=== PATIENT | male | born 1960 | race Caucasian/White ===

== ENCOUNTER → 2023-11-29 06:28 | Day surgery (SDC) | payer OTHER, SELFPAY | LOC: GI 06:28 | PROVIDERS: ATTENDING PHYSICIAN Surgery | DX: Z12.11 Encounter for screening for malignant neoplasm of colon (principal); D12.0 Benign neoplasm of cecum; D12.5 Benign neoplasm of sigmoid colon; K57.30 Diverticulosis of large intestine without perforation or abscess without bleeding; Z86.010 Personal history of colon polyps | CPT/HCPCS: 45380; 88305 ==

== ENCOUNTER 2023-11-30 17:00 | Emergency (ER) | payer OTHER, SELFPAY ==
[2023-11-30 17:03] VITALS: BP 160/121
[2023-11-30 17:38] VITALS: BMI 28.8
[2023-11-30 17:52] VITALS: BP 148/98
[2023-11-30 17:59] LABS: % Basophils 0.5 % (0-2); % Eosinophils 2.5 % (0-6); % Immature Granulocytes 0.4 % (0-0.5); % Monocytes 9.8 % (1.7-9.3); % Neutrophils 68.8 % (42.2-75.2); Absolute Eosinophils 0.2 10^3/uL (0-0.7); Absolute Lymphocytes 1.4 10^3/uL (1.2-3.4); Absolute Monocytes 0.8 10^3/uL (0.1-0.6); Absolute Neutrophils 5.3 10^3/uL (1.4-6.5); Hematocrit 39.2 % (39.0-52.0); Hemoglobin 14.1 g/dL (13.0-18.0); Mean Corpuscular Hgb 29.1 pg (27.0-31.0); Mean Corpuscular Volume 80.8 fL (80.0-94.0); Mean Platelet Volume 8.9 fL (7.4-10.4); Nucleated Red Blood Cells % 0 % (-); Platelet Count 273 10^3/uL (130-400); Red Blood Cell Count 4.85 10^6/uL (4.70-6.10); Red Cell Dist. Width 12.8 % (11.5-14.5); White Blood Cell Count 7.7 10^3/uL (4.8-10.8)
[2023-11-30 18:13] LABS: ALT (SGPT) 85 U/L (0-50); AST (SGOT) 47 U/L (17-59); Albumin 4.5 g/dl (3.5-5.0); Alkaline Phosphatase 136 U/L (38-126); Blood Urea Nitrogen 17 mg/dl (9-20); Calcium 10.2 mg/dl (8.4-10.2); Carbon Dioxide 25 mmol/L (22-30); Chloride 103 mmol/L (98-107); Estimated Creatinine Clearance 90 ml/min; Glucose 107 mg/dl (70-99); Potassium 4.3 mmol/L (3.5-5.1); Sodium 140 mmol/L (135-145); Total Bilirubin 0.6 mg/dl (0.2-1.3); Total Protein 7.5 g/dl (6.3-8.2); eGFR > 60.00
[2023-11-30 18:38] LABS: Urine Albumin Negative (Neg - Trace); Urine Bilirubin Negative (Negative); Urine Character Clear (Clear); Urine Color Yellow; Urine Glucose Negative (Negative); Urine Ketone Negative (Negative); Urine Leukocyte Negative (Negative); Urine Nitrite Negative (Negative); Urine Occult Blood 2+ (Negative); Urine Specific Gravity 1.015 (<1.030); Urine Urobilinogen Negative (Neg - 1+)
[2023-11-30 19:02] LABS: Urine Red Blood Cell 0-2 /HPF (0-2)
[2023-11-30] MEDS: TORADOL 15 MG IV (19:07)
[2023-11-30] MEDS: ZOFRAN 4 MG IV (19:08)
[2023-11-30] MEDS: NSS 1000 IV (19:08)
[2023-11-30 19:57] LABS: Lipase 135 U/L (23-300)
[2023-11-30] MEDS: MORPHINE SULFATE 4 MG IV (20:37)
[2023-11-30 21:01] LABS: Creatine Phosphokinase 123 U/L (55-170)
--- NOTE | 2023-11-30 23:35 | ED.GENMED ---
History of Present Illness
General
Chief Complaint: Back Pain
Source: patient and spouse
Exam Limitations: none
Time Seen by Provider: 11/30/23 17:56
Nursing documentation reviewed up to this point in time: agreed with
History of Present Illness
History of Present Illness:
63-year-old male with a past medical history of hypertension, asthma, BPH who presents to the emergency room with his for evaluation of pain in the right back/flank as well as nausea and dry heaving. Patient has been dealing with chronic
nausea and dry heaving for weeks to months although he does feel that it is a bit worse over the past day or 2. His says that he seems to have a lot of belching and she thinks it might be from reflux. He has taken occasional omeprazole but
this does not seem to help. Over the past few days he says he is also had pain in the right flank/mid back. He says he thought it could be from a pinched nerve but he denies any shooting pains, denies any trauma or injury. He is pain is not worse
with movement. He says he has been having consistent sharp pain in the area. No clear triggering or relieving factors. Aside from the symptoms he denies any change in his bowel movements�no constipation or diarrhea (exception being that he did
have a colonoscopy yesterday and had to do the prep; symptoms all preceded colonoscopy). He denies any urinary symptoms. He denies any fevers or chills. He denies any chest pain or shortness of breath, cough. He denies any other complaints.
Past History
Past History
ED Past Medical History: Asthma (Exercise-induced), HTN and Psychiatric (depression); Negative CAD, Hypercholesterolemia, IDDM or NIDDM
ED Past Surgical History: Other (wisdom teeth extraction)
Social History
Tobacco: Non-smoker
Alcohol: Occasional
Drug: None
Personal:
Living: with family
Employment: Employed
Family History
Family History: Hypertension; Negative Early CAD or CAD
Review of Systems
Review of Systems
All Other Systems: ROS reviewed and negative except as documented in HPI and ROS
Constitutional: Denies fever or chills
Respiratory: Denies cough or trouble breathing
Cardiac: Denies chest pain
ABD/GI: Reports nausea; Denies abdominal pain, vomiting, diarrhea or constipated
: Reports flank pain; Denies dysuria or frequency
Musculoskeletal: Reports back pain; Denies neck pain
Neurological: Denies dizzy, headache, weakness or numbness
Phy Exam
Physical Exam
Physical Exam:
General: Awake, alert, oriented x3; no acute distress
Head: Normocephalic, atraumatic
Eyes: Conjunctiva normal, EOMI, sclera anicteric
Throat: Airway intact, handling secretions
Neck: Trachea midline, supple without meningismus
Lungs: Clear to auscultation bilaterally, no wheezing, rales, rhonchi
Heart: Regular rate and rhythm, no murmurs, gallops, or rubs
Abd: Soft, non distended, nontender
Back: No reproducible tenderness in the thoracic or lumbar spine or in the paraspinal region; no CVA tenderness
Neuro: Cranial nerves grossly intact, speech fluid
Skin: no rash
Extremities: No edema in extremities, equal pulses in all extremities
Scores
Heart Failure Risk
Heart Failure Risk Score: Not Applicable
Heart Score for Chest Pain Patients
STEMI patient?: Not applicable
Withdrawal Assessment of Alcohol
Withdrawal Assessment Completed?: Not applicable
Course
Orders/Labs/Results
Orders:
Orders
11/30/23 17:49
Complete Blood Count/With Diff Urgent
Comprehensive Metabolic Panel Urgent
Creatine Phosphokinase Urgent
Comment: ADDON
Lipase Urgent
Comment: ADD ON
Urinalysis Reflex To Culture Urgent
Date Specimen was Collected: 11/30/23
Time Specimen was Collected: 17:43
Urine Microscopic Reflex Cult Urgent
11/30/23 18:50
CT Abd/pel Without Iv Or Oral Urgent
Comment:
Reason For Exam: right flank pain
11/30/23 18:51
0.9% Sodium Chloride 1000 ml [Nss] 1,000 ml IV BOLUS
Ketorolac [Toradol] 15 mg IV NOW STA
Ondansetron Injectable [Zofran] 4 mg IV NOW STA
11/30/23 19:21
Add On- LAB Urgent
Tests Added?: lipase
11/30/23 20:27
US Abdomen Complete/Upper Urgent
Comment:
Reason For Exam: right flank pain, nausea
11/30/23 20:28
Add On- LAB Urgent
Tests Added?: CPK
Morphine Sulfate 4 mg IV NOW STA
11/30/23 23:34
Oxycodone [Roxicodone] 5 mg PO NOW STA
Abnormal Lab Results
11/30/23
17:49
Absolute Monos (auto) 0.8 H 10^3/uL
(0.1-0.6)
Lymphocytes % 18.0 L %
(20.5-51.1)
Monocytes % 9.8 H %
(1.7-9.3)
Glucose 107 H mg/dl
(70-99)
ALT 85 H U/L
(0-50)
Alkaline Phosphatase 136 H U/L
(38-126)
Ur Occult Blood Reflex 2+ A
(Negative)
11/30/23 17:49
11/30/23 17:49
Vital Signs
Initial and Last Documented VS:
Initial Vital Signs
Temp Pulse Resp BP Pulse Ox
36.9 C 97 19 160/121 100
11/30/23 17:03 11/30/23 17:03 11/30/23 17:03 11/30/23 17:03 11/30/23 17:03
Last Documented Vital Signs
Temp Pulse Resp BP Pulse Ox
36.9 C 88 16 138/108 97
11/30/23 17:03 11/30/23 23:51 11/30/23 23:51 11/30/23 23:51 11/30/23 23:51
MDM/Problems Addressed
Differential Diagnosis Includes:
Nausea: GERD, gastritis, ulcer, gallstones, pancreatitis, kidney stone
Flank/back pain: Kidney stone, gallstones, cholecystitis, pancreatitis, ulcer, musculoskeletal pain, pinched nerve considered less likely
MDM/Problems Addressed:
63-year-old male presents for evaluation of chronic nausea worse over the past few days in association with new right mid back/flank pain. Hypertensive but otherwise normal vitals. Physical exam as above. Check labs including a CBC and CMP,
urinalysis. Check lipase. Will check CT abdomen pelvis. Will treat pain and nausea. Reassess after the above.
Nausea improved with Zofran but Toradol did not improve pain. Will treat with morphine. Initial labs reviewed: CBC unremarkable, CMP shows marginal elevation of ALT but normal T. bili, normal AST, normal lipase. Urinalysis positive for blood but
negative for infection. Awaiting CT.
CT abdomen pelvis negative for any acute pathology. Will check upper abdominal ultrasound to rule out cholelithiasis or cholecystitis.
Right upper quadrant ultrasound shows fatty liver (likely accounts for marginal LFT abnormality) but no gallstones or emergent pathology. Patient symptoms have improved greatly with treatment here. Low suspicion for emergent pathology at this
point. Leading diagnosis would be GERD possibly with peptic or duodenal ulcer. He has taken occasional omeprazole; will start instead on daily pantoprazole 40 mg and Carafate. Patient actually has an appointment with his primary doctor tomorrow
and I urged him to keep this and to discuss potentially GI follow-up (his colonoscopy was done by colorectal surgeon referred by primary). He feels comfortable with this plan. He is requesting pain medication to take should his significant pain
return�prescribed low-dose of breakthrough pain medication if needed. Spoke about return precautions and all questions answered.
Acute Exacerbation and/or Progression of Chronic Illness:
Acutely hypertensive no signs or symptoms of hypertensive emergency no indication for emergent antihypertensive treatment
Acute Exacerbation and/or Progression of Chronic Illness: HTN
*Radiology
Radiology exam reviewed: preliminary read by ED provider and radiology read reviewed
*Pulse Oximetry
Patient hypoxic: no
*Critical Care Note
Total Time (30-74mins, 75-104mins- exclusive of procedures): Not Applicable
Data Reviewed
Source: patient and records
ED Attending Note
-
Portions of this chart may have been created with voice recognition software.� Occasional wrong word or��sound alike� substitutions may have occurred due to the inherent limitations of voice recognition software.
Discharge Plan
Departure
Patient Disposition: Home (Routine Discharge)
Date of Disposition: 11/30/23
Time of Disposition: 23:45
Patient with high blood pressure during this ER visit?: Yes
Discharge Problem:
Back pain, Nausea
Instructions: Nausea and Vomiting, Adult ED, Back Pain
Prescriptions:
New
oxycodone 5 mg tablet
5 mg PO TID PRN (Reason: Pain) Qty: 10 0RF
pantoprazole 40 mg tablet,delayed release (DR/EC)
40 mg PO DAILY Qty: 30 0RF
sucralfate [Carafate] 100 mg/mL suspension
10 ml PO ACHS Qty: 1000 0RF
No Action
Concerta Tab
72 mg PO DAILY
fluoxetine 20 MG capsule
60 mg PO DAILY
amlodipine 5 MG tablet
5 mg PO DAILY Qty: 30 0RF
alprazolam 1 MG tablet
1 mg PO DAILY
Deplin
1 tab PO DAILY
Patient Comments:
pt thinks dose is '50mg'
Vitamin B2
1 tab PO DAILY
Vitamin D
1 tab PO DAILY
cephalexin 500 mg capsule
500 mg PO BID 7 Days Qty: 14 0RF
Referrals:
Murali Malin Jr., DO [Family Provider] - Tomorrow
Activity Restrictions/Additional Instructions:
Thank you for visiting the Emergency Department at [facility].
1. Please schedule a follow up appointment as directed. Call first thing tomorrow morning to make an appointment.
2. If indicated, please take your medications as instructed and indicated on discharge paperwork.
3. If any of your symptoms do not improve, or persist, or become more severe within 6-12 hours, please return to the emergency department for further care.
4. Please return to the emergency department if you develop a headache, neck pain/stiffness, fever greater than 100.4F, chest pain, shortness of breath, persistent nausea, vomiting, slurred speech, difficulty walking, numbness/tingling, weakness,
signs of infection or any other symptoms that are worrisome to you.
Please call [phone] if you have any questions.
Interventions
Interventions:
*Risk Screen - Suicide Last Done: 11/30/23 17:39
*General Assessment Last Done: 11/30/23 17:04
*Neglect/Abuse Screening Last Done: 11/30/23 17:39
ED- Fall Risk Assessment Last Done: 11/30/23 23:55
*ED COVID-19 Vaccine History Last Done: 11/30/23 17:04
*Nursing Disposition Last Done: 11/30/23 23:55
ED-Musculoskeletal Assessment Last Done: 11/30/23 17:39
Discharge Date and Time
Discharge Date/Time: 11/30/23 23:55
Print Language: KISWAHILI
[2023-11-30] MEDS: ROXICODONE 5 MG PO (23:50)
[2023-11-30 23:51] VITALS: BP 138/108
== END 2023-11-30 23:55 | disposition home or self-care (01) ==
LOC: EMR 17:00
PROVIDERS: EMERGENCY PHYSICIAN Emergency Medicine; FAMILY PHYSICIAN Family Medicine
DX: M54.9 Dorsalgia, unspecified (principal); R11.0 Nausea; I10 Essential (primary) hypertension; N40.0 Benign prostatic hyperplasia without lower urinary tract symptoms; J45.909 Unspecified asthma, uncomplicated
CPT/HCPCS: 99285; 96374; 96375 ×2; 96361; 74176; 76700; 80053; 81003; 81015; 82550; 83690; 85025

== ENCOUNTER 2023-12-03 23:49 | Emergency (ER) | payer OTHER, SELFPAY ==
[2023-12-03 23:51] VITALS: BP 164/106
[2023-12-04 00:07] VITALS: BMI 29.1
--- NOTE | 2023-12-04 00:14 | EDRN ---
Pt having back pain which he has been told is related to his stomach. Pt was in this ED 3 days ago for same complaint he is here for tonight. Pt says every time he eats he gets nauseous, no vomiting. Pt thinks he is dehydrated because if he
drinks water he feels sick however he keeps the water down. Pt noticed digestion problems few months ago. Pt had colonoscopy on Mon then Mon night 'everything sorta collapsed' adds pt developed pain middle of his back 1 week ago which has
kept pt up at night because he cannot get comfortable. pain in his back became worse and he was unable to lie down so he came to ED for evaluation. Pt given 3 Rxs - protonix, carafate and oxycodone. Pt saw family doctor Monday morning
and reportedly felt it was referal pain from GI issue. Pt given Rx for muscle relaxer and another Rx for oxycodone however says 'we didn't put the first one in' (one from ED) Pt says he has not had a BM since colonoscopy on Mon however he has
not been eating much. Pt complains of bloating and belching. Pt feels lightheaded. No cp, sob, diarrhea, fever/chills/cough, urinary symptoms.
--- NOTE | 2023-12-04 00:25 | ED.GENMED ---
History of Present Illness
General
Chief Complaint: Abdominal Symptoms
Source: patient
Exam Limitations: none
Time Seen by Provider: 12/04/23 00:12
History of Present Illness
History of Present Illness:
This is a 63 year old male that comes in with c/o back and abd pain. States that he was here on with the same complaints. States at this time he feels that he is dehydrated. States that he has abd pain after eating and he gets nauseated but
has not vomiting. States that his appetite has decreased. State that he can drink water and he has had some dry heaves. States that he has had problems with digestion for the past month. States that he had a colonoscopy on Monday and then that
night his upper abd pain started. States that a week ago he also started with mid back pain and this pain also got worse that he couldn't sleep or lay down. States that he has not had a BM since Monday and he is belching a lot. Patient did see
his PCP on Monday morning and states that they felt this was still GI related. States that he has been started on Carafate, Protonix and given Oxycodone. States that t his is not helping and his took a morphine pill tonight that his had
and this helped. States that he also feels lightheaded. Denies any fever, chills, chest pain, SOB, diarrhea, headache, urinary burning.
Past History
Past History
ED Past Medical History: Asthma (Exercise-induced), GERD, HTN, Psychiatric (depression, Anxiety, Bipolar ) and Other (Tremors, Pleurisy, Diverticulitis, Tourette's, ); Negative CAD, Hypercholesterolemia, IDDM or NIDDM
ED Past Surgical History: Other (wisdom teeth extraction, Surgery for sleep apnea, Uvula removed, cataracts)
Social History
Tobacco: Non-smoker
Alcohol: Occasional
Drug: None
Personal:
Living: with family
Employment: Employed
Family History
Family History: Hypertension; Negative Early CAD or CAD
Review of Systems
Review of Systems
All Other Systems: ROS reviewed and negative except as documented in HPI and ROS
Constitutional: Reports no symptoms; Denies fever or chills
EENT: Reports no symptoms
Respiratory: Reports no symptoms; Denies cough or trouble breathing
Cardiac: Denies chest pain
ABD/GI: Reports abdominal pain, nausea and other (Dry heaves); Denies vomiting or diarrhea
: Reports no symptoms; Denies dysuria, frequency or urgency
Musculoskeletal: Reports back pain (Mid back pain)
Skin: Reports no symptoms
Neurological: Reports other (Lightheaded); Denies dizzy or headache
Psychiatric: Reports no symptoms
Phy Exam
General Physical Exam
General Presentation: mild distress
General age: appears stated age
General Skin: warm and dry
General Habitus: elderly
General Mental: alert
General Hydration: appears well hydrated
ENT Exam
ENT Exam: TM's normal, pharynx normal and neck supple
Eye Exam
Eye Exam: EOMI
Cardiovascular Exam
Cardiovascular Exam: regular rate/rhythm, no edema, no murmur and normal peripheral pulses
Pulmonary Exam
Pulmonary Exam: lungs clear, no respiratory distress, no rales, chest non tender, no crackles, no rhonchi, no wheezing and no cough
Gastrointestinal Exam
Gastrointestinal Exam: normal bowel sounds, soft, no organomegaly, no pulsatile mass, non distended and tender (Very slight Upper abd tenderness with palpation)
Musculoskeletal Exam
Musculoskeletal Exam: full ROM and no edema
Skin Exam
Skin Exam: normal color, warm/dry, no rash and no petechia
Psychiatric Exam
Psychiatric Exam: normal mood/affect
Course
Orders/Labs/Results
Orders:
Orders
12/04/23 00:24
0.9% Sodium Chloride 1000 ml [Nss] 1,000 ml IV BOLUS
Ketorolac [Toradol] 30 mg IV NOW STA
07/08/24 00:29
Electrocardiogram (*1) Urgent
Reason for Study: Abdominal Pain
EKG- Treatment ONCE
Complete Blood Count/With Diff Urgent
12/04/23 00:54
Comprehensive Metabolic Panel Urgent
Lipase Urgent
Troponin I Urgent
Abnormal Lab Results
12/04/23 12/04/23
00:29 00:54
Hct 38.8 L %
(39.0-52.0)
Absolute Monos (auto) 0.8 H 10^3/uL
(0.1-0.6)
Monocytes % 10.5 H %
(1.7-9.3)
Carbon Dioxide 21 L mmol/L
(22-30)
BUN 23 H mg/dl
(9-20)
Glucose 104 H mg/dl
(70-99)
ALT 57 H U/L
(0-50)
12/04/23 00:29
12/04/23 00:54
Dehydration. ALT mildly elevated. Troponin <0.012, lipase normal at 97
Vital Signs
Initial and Last Documented VS:
Initial Vital Signs
Temp Pulse Resp BP Pulse Ox
97.4 F 70 26 164/106 98
12/03/23 23:51 12/03/23 23:51 12/03/23 23:51 12/03/23 23:51 12/03/23 23:51
Last Documented Vital Signs
Temp Pulse Resp BP Pulse Ox
97.4 F 62 26 150/99 96
12/03/23 23:51 12/04/23 01:00 12/03/23 23:51 12/04/23 01:00 12/04/23 01:00
MDM/Problems Addressed
Differential Diagnosis Includes:
Ulcer, Gastritis,
MDM/Problems Addressed:
This is a 63 year old male that comes in with c/o back pain and upper abd pain. Patient as seen here on Thursday with the same complaints and had a CT and US done. States that he saw his PCP on Monday and patient has been given oxycodone, Protonix
and Carafate. Patient was also given a Muscle relaxer. States that he had a Colonoscopy on Monday and he has not had a BM since then but is not eating much.
Will check labs and medicate for pain.
Back into see patient. Patient was sleeping. Arouses easily. States that he is feeling better. Explained that his blood work show every slight Dehydration. Explained that this may all be Gastritis with reflux. Patient to continue with his Carafate
and Protonix as directed. Follow up with the family doctor. Return with any concerns.
Chronic conditions affecting care:
GERD
Chronic conditions affecting care: Psychiatric illness (Anxiety)
Acute Exacerbation and/or Progression of Chronic Illness:
GERD
Acute Exacerbation and/or Progression of Chronic Illness: Psychiatric illness (Anxiety)
*Pulse Oximetry
Patient hypoxic: no
*EKG
Interpreted by ED Provider?: Yes
Heart Rate: 65
Rate: normal
Rhythm: sinus
Kimper: left axis deviation
Interval: normal interval
QRS Pattern: normal QRS
Ischemia: no ischemia
*Car Rental Clerk Interpretation
Rate: Car Rental Clerk- N/A
*Critical Care Note
Total Time (30-74mins, 75-104mins- exclusive of procedures): Not Applicable
ED Attending Note
-
Portions of this chart may have been created with voice recognition software.� Occasional wrong word or��sound alike� substitutions may have occurred due to the inherent limitations of voice recognition software.
Discharge Plan
Departure
Patient Disposition: Home (Routine Discharge)
Date of Disposition: 12/04/23
Time of Disposition: 01:40
Patient with high blood pressure during this ER visit?: Yes
Condition: Good
Covid-19: Not Applicable
Discharge Problem:
Gastritis
Instructions: Gastritis (DC), BLOOD PRESSURE
Prescriptions:
No Action
fluoxetine 20 MG capsule
60 mg PO DAILY
amlodipine 5 MG tablet
5 mg PO DAILY Qty: 30 0RF
alprazolam 1 MG tablet
1 mg PO DAILY
Vitamin B2
1 tab PO DAILY
Patient Comments:
pt does not know dose
Vitamin D
1 tab PO DAILY
oxycodone 5 mg tablet
5 mg PO TID PRN (Reason: Pain) Qty: 10 0RF
pantoprazole 40 mg tablet,delayed release (DR/EC)
40 mg PO DAILY Qty: 30 0RF
sucralfate [Carafate] 100 mg/mL suspension
10 ml PO ACHS Qty: 1000 0RF
'Statin'
1 tab PO DAILY
Patient Comments:
pt does not know name or dose
propranolol [Inderal LA] 80 mg Capsule,Extended Release 24 Hr
80 mg PO DAILY
lisinopril 5 mg Tablet
5 mg PO DAILY
zaleplon [Sonata] 5 mg Capsule
5 mg PO HS
albuterol sulfate [ProAir HFA] 90 mcg/actuation Hfa Aerosol Inhaler
1 - 2 inh INHALATION PRN PRN (Reason: asthma)
bupropion HCl [Wellbutrin XL] 300 mg Tablet Extended Release 24 Hr
300 mg PO DAILY
Symbicort
2 puff inhalation DAILY
Patient Comments:
pt does not know dose
Referrals:
Murali Malin Jr., DO [Family Provider] - Follow up in 2-3 days
Activity Restrictions/Additional Instructions:
As discussed, your blood work shows very slight Dehydration. Your ALT is very slightly elevated. You have been given IV fluids here and pain medication. Please follow up with the family doctor for recheck. Please continue with your Protonix and your
Carafate as directed. IF YOU HAVE ANY OTHER CONCERNS PLEASE RETURN TO THE EMERGENCY ROOM.
Interventions
Interventions:
*Risk Screen - Suicide Last Done: 12/03/23 23:51
*General Assessment Last Done: 12/04/23 00:07
*Neglect/Abuse Screening Last Done: 12/03/23 23:51
ED- Fall Risk Assessment Last Done: 12/04/23 00:48
*ED COVID-19 Vaccine History Last Done: 12/04/23 00:00
PR-Qryxyr-Xcdjrqdupp Assessment Last Done: 12/04/23 00:24
ED- Neurological Assessment Last Done: 12/04/23 00:24
ED- Pulmonary Assessment Last Done: 12/04/23 00:24
Discharge Date and Time
Print Language: URDU
[2023-12-04] MEDS: TORADOL 30 MG IV (00:40)
[2023-12-04] MEDS: NSS 1000 IV (00:40)
[2023-12-04 00:46] LABS: % Basophils 0.9 % (0-2); % Eosinophils 4.2 % (0-6); % Immature Granulocytes 0.5 % (0-0.5); % Lymphocytes 21.5 % (20.5-51.1); % Monocytes 10.5 % (1.7-9.3); % Neutrophils 62.4 % (42.2-75.2); Absolute Basophils 0.1 10^3/uL (0-0.2); Absolute Eosinophils 0.3 10^3/uL (0-0.7); Absolute Lymphocytes 1.6 10^3/uL (1.2-3.4); Absolute Monocytes 0.8 10^3/uL (0.1-0.6); Absolute Neutrophils 4.6 10^3/uL (1.4-6.5); Hematocrit 38.8 % (39.0-52.0); Mean Corp Hgb Conc. 36.1 g/dL (33.0-37.0); Mean Corpuscular Volume 80.3 fL (80.0-94.0); Mean Platelet Volume 10.1 fL (7.4-10.4); Nucleated Red Blood Cells % 0 % (-); Platelet Count 248 10^3/uL (130-400); Red Blood Cell Count 4.83 10^6/uL (4.70-6.10); Red Cell Dist. Width 12.9 % (11.5-14.5); White Blood Cell Count 7.4 10^3/uL (4.8-10.8)
[2023-12-04 01:00] VITALS: BP 150/99
[2023-12-04 01:13] LABS: ALT (SGPT) 57 U/L (0-50); AST (SGOT) 34 U/L (17-59); Albumin 4.1 g/dl (3.5-5.0); Alkaline Phosphatase 106 U/L (38-126); Blood Urea Nitrogen 23 mg/dl (9-20); Calcium 9.6 mg/dl (8.4-10.2); Carbon Dioxide 21 mmol/L (22-30); Chloride 106 mmol/L (98-107); Estimated Creatinine Clearance 80 ml/min; Glucose 104 mg/dl (70-99); Potassium 4.3 mmol/L (3.5-5.1); Sodium 138 mmol/L (135-145); Total Bilirubin 0.6 mg/dl (0.2-1.3); Total Protein 6.9 g/dl (6.3-8.2); eGFR > 60.00
[2023-12-04 01:18] LABS: Lipase 97 U/L (23-300)
[2023-12-04 01:24] LABS: Troponin I < 0.012 ng/ml
== END 2023-12-04 01:57 | disposition home or self-care (01) ==
LOC: EMR 23:49
PROVIDERS: Clinical Nurse Specialist Family Health; EMERGENCY PHYSICIAN Emergency Medicine; FAMILY PHYSICIAN Family Medicine
DX: K29.70 Gastritis, unspecified, without bleeding (principal); I10 Essential (primary) hypertension; F41.9 Anxiety disorder, unspecified
CPT/HCPCS: 99284; 96374; 96361; 80053; 83690; 84484; 85025; 93005

== ENCOUNTER 2023-12-05 06:47 | Emergency (ER) | payer OTHER, SELFPAY ==
[2023-12-05 06:50] VITALS: BP 185/105
[2023-12-05 07:37] VITALS: BMI 28.9
[2023-12-05 07:43] VITALS: BP 182/105
[2023-12-05 08:00] VITALS: BP 178/98
--- NOTE | 2023-12-05 08:02 | ED.GENMED ---
History of Present Illness
General
Chief Complaint: Abdominal Pain
Time Seen by Provider: 12/05/23 08:01
History of Present Illness
History of Present Illness:
HPI: Patient presents with abdominal pain primarily in the epigastric started approximately 10 days ago. During this time he is intermittently had some discomfort that radiates towards the chest. Is been seen in our ED twice and also saw PMD
twice. He was briefly on narcotic analgesia without improvement. He continues to take PPI. He has been having intermittent dry heaves. He had a colonoscopy 7 days ago and states that he did have 2 polyps removed.
EXAM:
GENERAL: Well appearing in no distress
HEENT: Moist oral mucosa
CARDIOVASCULAR: No murmurs, normal heart rate, regular rhythm, No chest wall tenderness
PULMONARY: No respiratory distress, breath sounds are clear and equal
ABDOMEN: Soft with no peritoneal signs, no tenderness
NEUROLOGIC: Excellent strength all extremities, no coordination deficits
PSYCHIATRIC: Appropriate mental status, normal insight and judgement
EXTREMITIES: Nontender, no edema, moves all extremities equally
SKIN: No rash, no lesions
TIME OF INITIAL ENCOUNTER: 8:15 AM
NUMBER AND COMPLEXITY OF PROBLEMS ADDRESSED AT THE ENCOUNTER
� Chronic conditions affecting care: Diverticulosis, GERD, BPH, bipolar, Tourette's, asthma
� Acute Exacerbation and/or Progression of Chronic Illness: This is an acute problem
� Differential Diagnosis includes: Diverticulitis unlikely given the location, GERD, gastritis/esophagitis, ACS very unlikely
AMOUNT AND/OR COMPLEXITY OF DATA TO BE REVIEWED AND ANALYZED
� I performed an independent evaluation of and my interpretation is:
EKG: Sinus 69, left axis deviation, nonspecific ST abnormality, QTc 480 ms
CT: CT imaging personally reviewed and shows no acute abnormality
X-rays:
Laboratory Studies: White count 9.7, hemoglobin normal, bicarb normal, chemistries including lipase and LFTs normal
Other:
� Review of other/old records: On 11/30/2023, the patient was here and had a noncontrast CT which was unremarkable. On 11/30/2023, the patient also had an ultrasound which showed mild fatty liver and also no acute hepatobiliary
abnormalities
� Clinical information was obtained by an independent historian: I spoke to at bedside
� Prescriptions/Medications Considered but not given:
� Further testing considered but not performed:
RISK OF COMPLICATIONS AND/OR MORBIDITY OR MORTALITY OF PATIENT MANAGEMENT
� Social determinants of health affecting care: Lives at home
� Discussion with other providers: I discussed case with Dr. Calixtoent is to follow-up with Dr. Figueroa at 8 AM tomorrow.
� Escalation of care including admission/observation vs risk of discharge considered: Patient was given IV morphine the other day, is also tried oxycodone, PPI, Carafate and PMD also gave muscle relaxer. The patient's lab work
today is relatively unremarkable. On reassessment at 9:20 AM, the patient's nausea persists�will try Compazine. CT imaging unremarkable. He appears fairly comfortable on reassessment at 12 PM. No clear indication for admission to the hospital.
However we will try Compazine suppository and he is to follow-up with GI tomorrow morning.
Past History
Past History
ED Past Medical History: Asthma (Exercise-induced), GERD, HTN, Psychiatric (depression, Anxiety, Bipolar ) and Other (Tremors, Pleurisy, Diverticulitis, Tourette's, ); Negative CAD, Hypercholesterolemia, IDDM or NIDDM
ED Past Surgical History: Other (wisdom teeth extraction, Surgery for sleep apnea, Uvula removed, cataracts)
Social History
Tobacco: Non-smoker
Alcohol: Occasional
Drug: None
Personal:
Living: with family
Employment: Employed
Family History
Family History: Hypertension; Negative Early CAD or CAD
Phy Exam
Physical Exam
Physical Exam:
See HPI
Course
Orders/Labs/Results
Orders:
Orders
12/05/23 06:53
Electrocardiogram (*1) Urgent
Reason for Study: Chest Pain
EKG- Treatment ONCE
12/05/23 08:19
Famotidine [Pepcid] 40 mg PO NOW STA
Ondansetron Injectable [Zofran] 4 mg IV NOW STA
12/05/23 08:22
CT Abd/pel W Iv And Oral Contr Urgent
Comment:
Reason For Exam: worsening upper abd pain
Iohexol [Omnipaque] See Protocol PO NOW STA
12/05/23 08:33
Complete Blood Count/With Diff Urgent
Comprehensive Metabolic Panel Urgent
Lipase Urgent
12/05/23 08:48
0.9% Sodium Chloride 1000 ml [Nss] 1,000 ml IV BOLUS
12/05/23 08:49
Ketorolac [Toradol] 15 mg IV NOW STA
12/05/23 09:20
Prochlorperazine [Compazine] 10 mg IV NOW STA
Abnormal Lab Results
12/05/23
08:33
Abs Immat Gran (auto) 0.1 H 10^3/uL
(0-0.05)
Absolute Neuts (auto) 6.8 H 10^3/uL
(1.4-6.5)
Absolute Monos (auto) 0.8 H 10^3/uL
(0.1-0.6)
Lymphocytes % 19.8 L %
(20.5-51.1)
Chloride 97 L mmol/L
(98-107)
Glucose 114 H mg/dl
(70-99)
Calcium 10.4 H mg/dl
(8.4-10.2)
ALT 53 H U/L
(0-50)
12/05/23 08:33
12/05/23 08:33
Vital Signs
Initial and Last Documented VS:
Initial Vital Signs
Temp Pulse Resp BP Pulse Ox
98.1 F 85 20 185/105 99
12/05/23 06:50 12/05/23 06:50 12/05/23 06:50 12/05/23 06:50 12/05/23 06:50
Last Documented Vital Signs
Temp Pulse Resp BP Pulse Ox
98.1 F 86 18 176/106 97
12/05/23 06:50 12/05/23 11:25 12/05/23 07:43 12/05/23 11:25 12/05/23 11:25
*Critical Care Note
Total Time (30-74mins, 75-104mins- exclusive of procedures): Not Applicable
ED Attending Note
-
Portions of this chart may have been created with voice recognition software.� Occasional wrong word or��sound alike� substitutions may have occurred due to the inherent limitations of voice recognition software.
Discharge Plan
Departure
Patient Disposition: Home (Routine Discharge)
Date of Disposition: 12/05/23
Time of Disposition: 11:57
Patient with high blood pressure during this ER visit?: Yes
Discharge Problem:
Nausea
Instructions: Acute Nausea and Vomiting
Prescriptions:
New
prochlorperazine [Compazine] 25 mg suppository
25 mg [place] Q12H PRN (Reason: nausea) Qty: 12 0RF
No Action
fluoxetine 20 MG capsule
60 mg PO DAILY
amlodipine 5 MG tablet
5 mg PO DAILY Qty: 30 0RF
alprazolam 1 MG tablet
1 mg PO DAILY
Vitamin B2
1 tab PO DAILY
Patient Comments:
pt does not know dose
Vitamin D
1 tab PO DAILY
oxycodone 5 mg tablet
5 mg PO TID PRN (Reason: Pain) Qty: 10 0RF
pantoprazole 40 mg tablet,delayed release (DR/EC)
40 mg PO DAILY Qty: 30 0RF
sucralfate [Carafate] 100 mg/mL suspension
10 ml PO ACHS Qty: 1000 0RF
'Statin'
1 tab PO DAILY
Patient Comments:
pt does not know name or dose
propranolol [Inderal LA] 80 mg Capsule,Extended Release 24 Hr
80 mg PO DAILY
lisinopril 5 mg Tablet
5 mg PO DAILY
zaleplon [Sonata] 5 mg Capsule
5 mg PO HS
albuterol sulfate [ProAir HFA] 90 mcg/actuation Hfa Aerosol Inhaler
1 - 2 inh INHALATION PRN PRN (Reason: asthma)
bupropion HCl [Wellbutrin XL] 300 mg Tablet Extended Release 24 Hr
300 mg PO DAILY
Symbicort
2 puff inhalation DAILY
Patient Comments:
pt does not know dose
Referrals:
Murali Malin Jr., [Family Provider] -
Tosha Figueroa MD [Active] - Tomorrow
Activity Restrictions/Additional Instructions:
The CAT scan with oral and IV contrast is unremarkable. I spoke to Dr. Arnoldhere is availability with Dr. Figueroa to be seen at [address] [place] when she does show up at their office at 7:45 AM tomorrow morning. I sent a prescription for
Compazine suppositories to your pharmacy. I am hoping this will help with nausea and dry heaves. We gave a dose of this by the IV and we also gave you IV fluids.
Interventions
Interventions:
*Risk Screen - Suicide Last Done: 12/05/23 06:50
*General Assessment Last Done: 12/05/23 06:50
*Neglect/Abuse Screening Last Done: 12/05/23 06:50
XJ-Gnsilj-Ivkitdyxiz Assessment Last Done: 12/05/23 07:45
Discharge Date and Time
Print Language: ESTONIAN
[2023-12-05] MEDS: ZOFRAN 4 MG IV (08:37)
[2023-12-05] MEDS: OMNIPAQUE 50 ML PO (08:39)
[2023-12-05] MEDS: PEPCID 40 MG PO (08:42)
[2023-12-05] MEDS: NSS 1000 IV (08:54)
[2023-12-05] MEDS: TORADOL 15 MG IV (08:55)
[2023-12-05 09:00] VITALS: BP 172/116
[2023-12-05 09:07] LABS: % Basophils 0.3 % (0-2); % Eosinophils 1.1 % (0-6); % Immature Granulocytes 0.5 % (0-0.5); % Lymphocytes 19.8 % (20.5-51.1); % Monocytes 8.1 % (1.7-9.3); % Neutrophils 70.2 % (42.2-75.2); Absolute Eosinophils 0.1 10^3/uL (0-0.7); Absolute Immature Granulocytes 0.1 10^3/uL (0-0.05); Absolute Lymphocytes 1.9 10^3/uL (1.2-3.4); Absolute Monocytes 0.8 10^3/uL (0.1-0.6); Absolute Neutrophils 6.8 10^3/uL (1.4-6.5); Hematocrit 41.1 % (39.0-52.0); Hemoglobin 14.8 g/dL (13.0-18.0); Mean Corpuscular Hgb 29.3 pg (27.0-31.0); Mean Corpuscular Volume 81.4 fL (80.0-94.0); Mean Platelet Volume 9.4 fL (7.4-10.4); Nucleated Red Blood Cells % 0 % (-); Platelet Count 300 10^3/uL (130-400); Red Blood Cell Count 5.05 10^6/uL (4.70-6.10); Red Cell Dist. Width 12.9 % (11.5-14.5); White Blood Cell Count 9.7 10^3/uL (4.8-10.8)
[2023-12-05 09:22] LABS: ALT (SGPT) 53 U/L (0-50); AST (SGOT) 38 U/L (17-59); Albumin 4.8 g/dl (3.5-5.0); Alkaline Phosphatase 108 U/L (38-126); Blood Urea Nitrogen 18 mg/dl (9-20); Calcium 10.4 mg/dl (8.4-10.2); Carbon Dioxide 26 mmol/L (22-30); Chloride 97 mmol/L (98-107); Estimated Creatinine Clearance 90 ml/min; Glucose 114 mg/dl (70-99); Lipase 108 U/L (23-300); Potassium 4.3 mmol/L (3.5-5.1); Sodium 137 mmol/L (135-145); Total Protein 7.9 g/dl (6.3-8.2); eGFR > 60.00
[2023-12-05] MEDS: COMPAZINE 10 MG IV (09:22)
[2023-12-05 10:00] VITALS: BP 161/110
[2023-12-05 11:25] VITALS: BP 176/106
== END 2023-12-05 12:24 | disposition home or self-care (01) ==
LOC: EMR 06:47
PROVIDERS: EMERGENCY PHYSICIAN Emergency Medicine; FAMILY PHYSICIAN Family Medicine
DX: R10.13 Epigastric pain (principal); R07.89 Other chest pain; R11.0 Nausea; K21.9 Gastro-esophageal reflux disease without esophagitis; K57.90 Diverticulosis of intestine, part unspecified, without perforation or abscess without bleeding; N40.0 Benign prostatic hyperplasia without lower urinary tract symptoms; F31.9 Bipolar disorder, unspecified; J45.909 Unspecified asthma, uncomplicated; F95.2 Tourette's disorder; K76.0 Fatty (change of) liver, not elsewhere classified; I10 Essential (primary) hypertension; F41.9 Anxiety disorder, unspecified; F32.A Depression, unspecified; Z98.890 Other specified postprocedural states; Z91.048 Other nonmedicinal substance allergy status
CPT/HCPCS: 99285; 96375 ×2; 96361; 96374; 74177; 80053; 83690; 85025; 93005; Q9967

== ENCOUNTER → 2023-12-07 11:11 | Outpatient (REF) | payer OTHER, SELFPAY | LOC: HWRAD 11:11 | PROVIDERS: ATTENDING PHYSICIAN Family Medicine | DX: M54.6 Pain in thoracic spine (principal) | CPT/HCPCS: 72072 ==

== ENCOUNTER 2023-12-09 00:40 | Inpatient (IN) | payer OTHER, SELFPAY ==
[2023-12-08] VITALS (21 sets, daily range): BP systolic 79–134; BP diastolic 54–89
[2023-12-08 18:36] LABS: % Basophils 0.4 % (0-2); % Eosinophils 3.3 % (0-6); % Lymphocytes 17.6 % (20.5-51.1); % Monocytes 10.4 % (1.7-9.3); % Neutrophils 67.3 % (42.2-75.2); Absolute Basophils 0.1 10^3/uL (0-0.2); Absolute Eosinophils 0.4 10^3/uL (0-0.7); Absolute Immature Granulocytes 0.1 10^3/uL (0-0.05); Absolute Monocytes 1.2 10^3/uL (0.1-0.6); Absolute Neutrophils 7.8 10^3/uL (1.4-6.5); Hematocrit 37.9 % (39.0-52.0); Hemoglobin 13.3 g/dL (13.0-18.0); Mean Corp Hgb Conc. 35.1 g/dL (33.0-37.0); Mean Corpuscular Hgb 28.7 pg (27.0-31.0); Mean Corpuscular Volume 81.7 fL (80.0-94.0); Mean Platelet Volume 9.5 fL (7.4-10.4); Nucleated Red Blood Cells % 0 % (-); Platelet Count 278 10^3/uL (130-400); Red Blood Cell Count 4.64 10^6/uL (4.70-6.10); Red Cell Dist. Width 13.2 % (11.5-14.5); White Blood Cell Count 11.6 10^3/uL (4.8-10.8)
[2023-12-08 18:58] LABS: Blood Urea Nitrogen 33 mg/dl (9-20); Calcium 9.3 mg/dl (8.4-10.2); Carbon Dioxide 22 mmol/L (22-30); Chloride 103 mmol/L (98-107); Glucose 103 mg/dl (70-99); eGFR 44.46
[2023-12-08 19:04] LABS: Sodium 137 mmol/L (135-145)
[2023-12-08 19:06] LABS: Troponin I 0.028 ng/ml
--- NOTE | 2023-12-08 19:28 | ED.GENMED ---
History of Present Illness
General
Chief Complaint: Weakness
Source: patient, records and spouse
Exam Limitations: none
Time Seen by Provider: 12/08/23 18:28
Nursing documentation reviewed up to this point in time: agreed with
History of Present Illness
History of Present Illness:
Patient is a 63-year-old male who presents to the emergency department after his second syncopal episode of the day. Patient states he does not remember what happened except that he fell to the floor on his patient did have bloody nose. Patient
denies any head or neck or back pain at this time. Patient had a colonoscopy on the third of the month. It showed that he had diverticulosis as well as 2 polyps that were removed. Ever since that time and patient has gotten weaker and weaker with
lack of appetite and not eating or drinking. Patient's abdomen feels bloated and discomfort. Patient's had workup including scans been unremarkable. Patient has increasing weakness. Patient denies fever chills, nasal congestion, sore throat or
cough. Patient denies any chest pain, palpitations or shortness of breath. Patient denies diaphoresis. Patient denies any melena or hematochezia.
Past History
Past History
ED Past Medical History: Asthma (Exercise-induced), GERD, HTN, Psychiatric (depression, Anxiety, Bipolar ) and Other (Tremors, Pleurisy, Diverticulitis, Tourette's, ); Negative CAD, Hypercholesterolemia, IDDM or NIDDM
ED Past Surgical History: Other (wisdom teeth extraction, Surgery for sleep apnea, Uvula removed, cataracts)
Social History
Tobacco: Non-smoker
Alcohol: Occasional
Drug: None
Personal:
Living: with family
Employment: Employed
Family History
Family History: Hypertension; Negative Early CAD or CAD
Review of Systems
Review of Systems
All Other Systems: ROS reviewed and negative except as documented in HPI and ROS
Constitutional: Reports weight loss and fatigue; Denies fever or chills
EENT: Reports no symptoms
Respiratory: Reports no symptoms
Cardiac: Reports syncope; Denies chest pain, diaphoresis or palpitations
ABD/GI: Reports anorexia and other (Bloated and uncomfortable); Denies nausea, vomiting, diarrhea, constipated, bloody stools or black stools
: Reports no symptoms
Musculoskeletal: Reports no symptoms
Skin: Reports no symptoms
Neurological: Reports no symptoms
Hematologic/Lymphatic: Reports no symptoms
Psychiatric: Reports no symptoms
Phy Exam
Physical Exam
Physical Exam:
Physical Exam
General: mild distress, alert and appropriate, well nourished, dry mucous membranes
HENT: Normocephalic and nontender. Nares with blood in the left but no septal hematoma or deformity. Neck, supple with no tracheal deviation or contusion
Eyes: Clear sclera, conjuctiva without injection
Heart: Regular rhythm and rate. No S3, S4. No murmur. No NVD
Lungs: No respiratory distress, no stridor, lung sounds clear and equal bilaterally, chest wall symmetrical and nontender
Abdomen: Soft, nontender, BS good
Neuro: Alert and oriented x 3, CN II - XII intact, no motor focality, no cerebellar dysfunction
Skin: no rash. Pale
Psychiatric: well kept. interactive and cooperative
Extremities: No edema, cyanosis, tenderness, Good and equal peripheral pulses.
Musculoskeletal: No cervical, thoracic or lumbar spine tenderness
Course
Orders/Labs/Results
Orders:
Orders
12/08/23 18:25
Electrocardiogram (*1) Urgent
Reason for Study: Fatigue / Weakness
EKG- Treatment ONCE
12/08/23 18:30
Basic Metabolic Panel Urgent
Complete Blood Count/With Diff Urgent
Troponin I Urgent
12/08/23 18:32
CT Head W/o Iv Contrast Urgent
Comment:
Reason For Exam: fall
12/08/23 19:28
Comprehensive Metabolic Panel Urgent
Abnormal Lab Results
12/08/23
18:30
WBC 11.6 H 10^3/uL
(4.8-10.8)
RBC 4.64 L 10^6/uL
(4.70-6.10)
Hct 37.9 L %
(39.0-52.0)
Abs Immat Gran (auto) 0.1 H 10^3/uL
(0-0.05)
Absolute Neuts (auto) 7.8 H 10^3/uL
(1.4-6.5)
Absolute Monos (auto) 1.2 H 10^3/uL
(0.1-0.6)
Immature Gran % 1.0 H %
(0-0.5)
Lymphocytes % 17.6 L %
(20.5-51.1)
Monocytes % 10.4 H %
(1.7-9.3)
BUN 33 H mg/dl
(9-20)
Creatinine 1.7 H mg/dL
(0.7-1.3)
Glucose 103 H mg/dl
(70-99)
12/08/23 18:30
12/08/23 18:30
Vital Signs
Initial and Last Documented VS:
Initial Vital Signs
Temp Pulse Resp BP Pulse Ox
97.6 F 80 20 84/62 98
12/08/23 18:24 12/08/23 18:24 12/08/23 18:24 12/08/23 18:24 12/08/23 18:24
Last Documented Vital Signs
Temp Pulse Resp BP Pulse Ox
97.6 F 81 14 79/55 96
12/08/23 18:24 12/08/23 18:30 12/08/23 18:30 12/08/23 18:30 12/08/23 18:30
*Radiology
Radiology exam reviewed: radiology read reviewed (CT head unremarkable)
*Pulse Oximetry
Patient hypoxic: no
*EKG
Interpreted by ED Provider?: Yes
EKG Intrepretation Date: 12/08/23
EKG Intrepretation Time: 19:41
Interpretation: abnormal
Comparison EKG: no changes
Heart Rate: 65
Rate: normal
Rhythm: sinus
[place]: left axis deviation
Interval: normal interval
QRS Pattern: left vent hypertrophy
Ischemia: non-specific ST changes
*[employer] Interpretation
Rate: normal
Interpretation: normal
Heart Rate: 65
Rhythm: sinus
*Critical Care Note
Total Time (30-74mins, 75-104mins- exclusive of procedures): Not Applicable
Update Note
Update Note:
Patient's BUN and creatinine have significantly increased in just 3 days. Patient appears dehydrated. Believe the syncopal episode is due to dehydration which is due to a lack of oral intake since his colonoscopy.
ED Attending Note
-
Portions of this chart may have been created with voice recognition software.� Occasional wrong word or��sound alike� substitutions may have occurred due to the inherent limitations of voice recognition software.
Discharge Plan
Departure
Patient Disposition: Home (Routine Discharge)
Date of Disposition: 12/08/23
Time of Disposition: 19:43
Patient with high blood pressure during this ER visit?: No
Condition: Fair
Covid-19: Not Applicable
Discharge Problem:
Syncope, Acute dehydration, Hypotension, Acute prerenal azotemia
Prescriptions:
No Action
fluoxetine 20 MG capsule
60 mg PO DAILY
amlodipine 5 MG tablet
5 mg PO DAILY Qty: 30 0RF
alprazolam 1 MG tablet
1 mg PO DAILY
Vitamin B2
1 tab PO DAILY
Patient Comments:
pt does not know dose
Vitamin D
1 tab PO DAILY
oxycodone 5 mg tablet
5 mg PO TID PRN (Reason: Pain) Qty: 10 0RF
pantoprazole 40 mg tablet,delayed release (DR/EC)
40 mg PO DAILY Qty: 30 0RF
sucralfate [Carafate] 100 mg/mL suspension
10 ml PO ACHS Qty: 1000 0RF
'Statin'
1 tab PO DAILY
Patient Comments:
pt does not know name or dose
propranolol [Inderal LA] 80 mg Capsule,Extended Release 24 Hr
80 mg PO DAILY
lisinopril 5 mg Tablet
5 mg PO DAILY
zaleplon [Sonata] 5 mg Capsule
5 mg PO HS
albuterol sulfate [ProAir HFA] 90 mcg/actuation Hfa Aerosol Inhaler
1 - 2 inh INHALATION PRN PRN (Reason: asthma)
bupropion HCl [Wellbutrin XL] 300 mg Tablet Extended Release 24 Hr
300 mg PO DAILY
Symbicort
2 puff inhalation DAILY
Patient Comments:
pt does not know dose
prochlorperazine [Compazine] 25 mg suppository
25 mg IN Q12H PRN (Reason: nausea) Qty: 12 0RF
Interventions
Interventions:
*Risk Screen - Suicide Last Done: 12/08/23 18:24
*General Assessment Last Done: 12/08/23 18:24
*Neglect/Abuse Screening Last Done: 12/08/23 18:24
ED- Cardiac Assessment Last Done: 12/08/23 18:51
ED- Neurological Assessment Last Done: 12/08/23 18:51
ED- Pulmonary Assessment Last Done: 12/08/23 18:51
Discharge Date and Time
Print Language: LATVIAN
[2023-12-08 19:59] LABS: ALT (SGPT) 28 U/L (0-50); AST (SGOT) 22 U/L (17-59); Albumin 3.4 g/dl (3.5-5.0); Alkaline Phosphatase 86 U/L (38-126); Blood Urea Nitrogen 31 mg/dl (9-20); Calcium 8.8 mg/dl (8.4-10.2); Carbon Dioxide 24 mmol/L (22-30); Chloride 105 mmol/L (98-107); Glucose 103 mg/dl (70-99); Sodium 138 mmol/L (135-145); Total Bilirubin 0.6 mg/dl (0.2-1.3); Total Protein 6.1 g/dl (6.3-8.2); eGFR 44.46
[2023-12-08] MEDS: NSS 1000 IV ×2 (22:59→23:19)
[2023-12-09] VITALS (13 sets, daily range): BP systolic 95–174; BP diastolic 57–109; PULSE 71–83; BMI 28.9; BMI 28.8
--- NOTE | 2023-12-09 00:26 | HPS.HSE ---
Family Physician
-
Family Physician: Murali Malin Jr.
Chief Complaint
-
Abd bloating, nausea, syncope
History of Present Illness
Patient is a 63y M with PMH significant for anxiety / depression and hypertension who presents to ED complaining of bloating, nausea and poor appetite x several months. He notes that his symptoms have been much wore over the past 7-10 days.
Today, he had an episode of syncope at home while walking and fell onto his face. He states he felt mildy 'woozy' prior to the fall. Patient denies any current pain, headache, etc.
Patient notes sense of nausea, poor appetite and bloating x months. He felt that he was 'getting old' and perhaps becoming intolerant to certain foods - though he has been unable to identify any specific culprit.
He has been evaluated by his PCP and he is scheduled for GI eval / EGD in the coming weeks.
Patient had routine screening colonoscopy done on 11/28 (Dr. Griffin) - not related to his current symptoms.
Following this, his bloating and nausea have seemed much more severe.
He states he has had 2 normal appearing BM since that procedure. No urinary complaints.
He has noted some R flank pain that is at times sharp and at times dull / achy.
In the ED, patient is resting comfortably.
Medical History
Past Medical History
Past Medical History: Reports Other
Additional Past Medical History:
Anxiety / Depression
Hypertension
CHEL s/p UP3
'Chronic SOB'
Past Surgical History: Reports Other
Additional Past Surgical History:
UP3
Sinus Surgery
Social History
Tobacco: Non-smoker
Alcohol: None
Drug: None
Family History
Family History: Other (Father: Lung Cancer Mother: Lymphoma Sister: Leiomyosarcoma)
Allergies / Home Medications
Allergies reflects when Allergies were last updated in [facility].
Home Medications with original date entered in [facility]
Allergy/Medication List:
Allergies
Allergy/AdvReac Type Severity Reaction Status Date / Time
Hayfever, dust Allergy Runny Uncoded 12/05/23 06:52
nose,
eyes,
sneezing
Home Medications
fluoxetine 20 mg capsule 60 mg PO DAILY 04/26/15
'Statin' 1 tab PO DAILY 12/04/23
Symbicort 2 puff inhalation DAILY 12/04/23
albuterol sulfate 90 mcg/actuation aerosol inhaler 1 - 2 inh inhalation PRN PRN asthma 12/04/23
bupropion HCl 300 mg 24 hr tablet, extended release (Wellbutrin XL) 300 mg PO DAILY 12/04/23
lisinopril 5 mg tablet 5 mg PO DAILY 12/04/23
propranolol 80 mg capsule,24 hr,extended release (Inderal LA) 80 mg PO DAILY 12/04/23
zaleplon 5 mg capsule 5 mg PO HS 12/04/23
Review of Systems
-
History Source: Patient
A 12 point ROS was completed and negative except as noted: Yes
Constitutional: Reports Weight Loss (10 lbs this week.) and Fatigue; Denies Fever or Chills
EENT: Denies Sore Throat
Respiratory: Denies Cough or Trouble Breathing
Cardiac: Reports Syncope; Denies Chest Pain or Palpitations
Abdomen/GI: Reports Abdominal Pain, Nausea and Anorexia; Denies Vomiting, Diarrhea, Constipated, Bloody Stools or Black Stools
: Reports Flank Pain; Denies Dysuria or Frequency
Musculoskeletal: Denies Joint Pain or Edema
Neurological: Denies Dizzy or Headache
Psych: Denies Depression or Anxiety
Physical Exam
Vital Signs
Vital Signs
Temp Pulse Resp BP Pulse Ox
97.6 F 71 12 104/64 96
12/08/23 18:24 12/09/23 00:15 12/09/23 00:00 12/09/23 00:15 12/09/23 00:15
Physical Exam
General: Other (63y M in no acute distress.)
HEENT: PERRLA and Other (Dry MM.)
Respiratory: Clear; No Wheezes, Rales or Rhonchi
Cardiac: S1/S2 and Regular Rhythm; No Murmur
GI: Soft, Non Tender, Non Distended and Normal Bowel Sounds
Genito-urinary: No costovertebral tender
Musculoskeletal: No Clubbing, No Cyanosis and No Edema
Neuro: AO x 3
Laboratory Results
-
12/08/23 18:30
12/08/23 19:36
Laboratory Results
Total Bilirubin 0.6 mg/dl (0.2-1.3) 12/08/23 19:36
AST 22 U/L (17-59) 12/08/23 19:36
ALT 28 U/L (0-50) 12/08/23 19:36
Alkaline Phosphatase 86 U/L (38-126) 12/08/23 19:36
Troponin I 0.028 ng/ml 12/08/23 18:30
Impression/Plan
-
A/P: Patient is a 63y M with PMH significant for hypertension and anxiety / depression who presents to ED c/o months of poor appetite and bloating culminating in syncopal episode this evening.
Hypotension
Syncope secondary to the above
- Admit for further evaluation and treatment.
- Poor PO intake, and on multiple vasoactive medications - but no significant volume losses GI or .
- Monitor on tele for any arrhythmia.
- IVFs support overnight for BP improvement.
- PT / OT evals in the AM.
- Monitor for any new / worsening symptoms.
- Further eval for underlying abdominal issues as noted below.
Anorexia
Bloating / Nausea
- Persistent symptoms x months.
- CT A/P on 11/29 and 12/04 were unremarkable.
- Abd US on 11/29 also unremarkable.
- No diarrhea, bloody stools, etc.
- Follow for any new / worsening symptoms.
- IVFs as noted above.
- GI eval for further recommendations.
RAMOS
- Likely secondary to hypovolemia +/- ATN due to low BP.
- SCr = 1.7 compared to baseline of 0.8.
- IVF support as noted above.
- Hold lisinopril (and other BP agents).
- Follow for improvement in renal function.
- Recent imaging (as noted above) without evidence of stone / obstruction / etc.
Benign Hypertension
-Presently hypotensive.
- Hold all BP agents acutely.
Anxiety / Depression
- Stable. Continue outpatient med regimen.
Chronic SOB
- Unclear underlying diagnosis.
- Patient uses Symbicort and Albuterol both PRN.
- PRN albuterol during stay.
DVT Prophylaxis: Subcut Heparin
Code Status: Full
[2023-12-09] MEDS: NSS 1000 IV ×3 (01:13→17:25)
[2023-12-09] MEDS: TYLENOL 650 MG PO ×3 (02:14→13:26)
--- NOTE | 2023-12-09 02:20 | PTCARENOTE ---
Pt arrived to room 414-01. Pt ambulated from stretcher to bed with standby assistance. Pt AAOx3, VSS. Pt c/o 09/05 mid back pain. Pt in no signs of acute distress, respirations regular. Pt oriented to room, call gonzales placed within reach.
[2023-12-09 06:31] LABS: Hematocrit 34.9 % (39.0-52.0); Hemoglobin 12.5 g/dL (13.0-18.0); Mean Corp Hgb Conc. 35.8 g/dL (33.0-37.0); Mean Corpuscular Hgb 29.2 pg (27.0-31.0); Mean Corpuscular Volume 81.5 fL (80.0-94.0); Mean Platelet Volume 9.5 fL (7.4-10.4); Platelet Count 234 10^3/uL (130-400); Red Blood Cell Count 4.28 10^6/uL (4.70-6.10); Red Cell Dist. Width 13.4 % (11.5-14.5); White Blood Cell Count 8.9 10^3/uL (4.8-10.8)
[2023-12-09 07:01] LABS: Blood Urea Nitrogen 26 mg/dl (9-20); Carbon Dioxide 24 mmol/L (22-30); Chloride 106 mmol/L (98-107); Estimated Creatinine Clearance 60 ml/min; Glucose 79 mg/dl (70-99); Potassium 4.2 mmol/L (3.5-5.1); Sodium 139 mmol/L (135-145); eGFR > 60.00
[2023-12-09 07:33] LABS: TSH Reflex To Free T4 0.86 uIU/ml (0.47-4.68)
[2023-12-09] MEDS: PROZAC 60 MG PO (08:26)
[2023-12-09] MEDS: WELLBUTRIN XL (24 hour extended release) 300 MG PO (08:26)
[2023-12-09] MEDS: NSS (PRESERVATIVE FREE) 10 ML IV (08:27)
[2023-12-09] MEDS: HEPARIN 5000 UNITS SC ×2 (08:28→20:25)
[2023-12-09] MEDS: PROTONIX IV 40 MG IV (08:28)
--- NOTE | 2023-12-09 10:36 | PTCARENOTE ---
Rec'd pt this morning sitting up in bed. He does complain of right flank pain. Tylenol given for pain. He states he was taking Morphine at home for his pain. DR Bran Peoples was here to see him and was made aware of his pain and requesting
something stronger. He was going to see patient. No new orders at this time.
--- NOTE | 2023-12-09 11:08 | CON.GI ---
Addendum entered and electronically signed by Sree Bauman MD 12/09/23 13:18:
I saw and examined the patient.
The REINFORCER or PA's note was reviewed and I agree with the note.
Comment:
This patient is a 63-year-old man with a history of GERD, asthma, colon polyps, Tourette's who has had ongoing bloating and dyspepsia. He states that has early satiety and weight loss. He did have a colonoscopy and utilized the Sutab 10 days ago.
He was seen by Dr. Figueroa as an outpatient.
abd: soft, nontender
impression:
dyspepsia
weight loss
early satiety
plan:
EGD on monday
po as tolerated
outpatient sibo testing
marijuana abstinence
Original Note:
Consultation
-
Date/Time Consultation Requested: 12/09/23 0140
Date/Time Consultation Performed: 12/09/23 1100
Requesting Provider: Emanuel Ricks DO
Performing Provider: SEVERIANO Carey, Sree Bauman MD
Reason for Consultation: decreased appetite and bloating
Medical History
Chief Complaint / HPI
Chief Complaint: dry heaves, bloating, wt loss
History of Present Illness:
Pt is a 63yo with hx colon polyps, asthma, GERD, HTN, anxiety, bipolar, tremors, diverticulitis, tourette's with onset of abdominal pain. He has had several ER visits for abdominal pain, back pain and bloating. In reviewing with patient he has had
ongoing for a few months with increase symptoms over last week. He went for routine colonoscopy with sutab prep on 11/28 with increased symptoms post procedure. He did feel like he passed less stool than with prior prep but had not tried sutab in
past. He admits he will wake up feeling ok then eat about 2 pieces of bread then start with nausea and bloating after eating with no desire to eat lunch. He has been started on carafate, protonix and given Ocycodone for back pain by PCP. He also
order H pylori testing. He was also seen by Dr. Figueroa 12/05 and set up for EGD and SIBO testing. Denies any other new medication but admits to Marijuana use several times per week.
He has had several imaging tests with noted noted unremarkable US abdomen mild hepatic steatosis, and CT without contrast unrevealing 11/29. On returns to 12/04 Ct was repeated with IV and oral contrast noted normal. thoracic film 12/06 no acute
fx or lesion, DDD. Pt admits to GERD with no medications, nausea, dry heaves without vomiting or hematemesis. He admits to some lower abdominal pain with some worse pain right of umbilical area and also noted back pain that required Morphine use.
He has lost about 10 lbs in last 8 days with difficulty eating. No change no stools but less stool since colonoscopy and eating less last week. No dysphagia, blood or black in stools. + marijuana use last few years several times per week. Last
colonoscopy 11/29/2023 [facility] with diverticulosis in sigmoid and descending colon 3 mm polyp IC valve and 3 mm polyp in sigmoid bx TA polyps
Past Medical History
Past Medical History: Asthma (exercise induced ), GERD, HTN, Psychiatric (anxiety/depression, bipolar) and Other (CHEL, chronic shortness of breath, tremors, pleursy, diverticulitis, tourette's, BPH, erectile dysfunction, TA polyps, fatty liver )
Past Surgical History: Other (sinus surgery, wisdom teeth extraction, sleep apnea, uvula removed, caraacts )
Social History
Tobacco: Non-Smoker
Alcohol: Occasional
Drug: Marijuana
Personal:
Living: With Family
Employment: Employed
Family History
Family History: Other (colon Ca - uncles, father lung, CA, mother lymphoma, sister leiomysarcoma)
Allergies / Home Medications
Allergy/AdvReac Type Severity Reaction Status Date / Time
Hayfever, dust Allergy Runny Uncoded 12/05/23 06:52
nose,
eyes,
sneezing
�Medication �Instructions �Recorded
fluoxetine 20 mg capsule 60 mg PO DAILY 04/26/15
'Statin' 1 tab PO DAILY 12/04/23
Symbicort 2 puff inhalation DAILY 12/04/23
albuterol sulfate 90 mcg/actuation 1 - 2 inh inhalation PRN PRN asthma 12/04/23
aerosol inhaler
bupropion HCl 300 mg 24 hr tablet, 300 mg PO DAILY 12/04/23
extended release (Wellbutrin XL)
lisinopril 5 mg tablet 5 mg PO DAILY 12/04/23
propranolol 80 mg capsule,24 80 mg PO DAILY 12/04/23
hr,extended release (Inderal LA)
zaleplon 5 mg capsule 5 mg PO HS 12/04/23
Review of Systems
-
History Source: Patient and Family
Constitutional: Reports Weight Loss
EENT: Reports No Symptoms
Respiratory: Reports Trouble Breathing (with bloating)
Cardiac: Reports No Symptoms
Abdomen/GI: Reports Abdominal Pain, Nausea and Other (bloating)
: Reports No Symptoms
Musculoskeletal: Reports Other (back pain)
Skin: Reports No Symptoms
Neurological: Reports No Symptoms
Endocrine: Reports No Symptoms
Hematologic/Lymphatic: Reports No Symptoms
Vital Signs
Temp Pulse Resp BP Pulse Ox
97.7 F 71 18 156/96 98
12/09/23 07:00 12/09/23 07:00 12/09/23 07:00 12/09/23 07:00 12/09/23 07:00
Physical Exam
Exam
General: Well Developed, Well Nourished and No Apparent Distress
HEENT: Normocephalic and Anicteric
Respiratory: Clear
Cardiac: Regular Rhythm
GI: Soft, Non Distended and Tender (mild mid abdomen does not appear distended )
Musculoskeletal: No Clubbing and No Cyanosis
Skin: Warm and Dry
Neuro: Awake, Alert and AO x 3
Psych: Calm
Results
WBC 8.9 10^3/uL (4.8-10.8) 12/09/23 06:03
Hgb 12.5 g/dL (13.0-18.0) L 12/09/23 06:03
Hct 34.9 % (39.0-52.0) L 12/09/23 06:03
MCV 81.5 fL (80.0-94.0) 12/09/23 06:03
Plt Count 234 10^3/uL (130-400) 12/09/23 06:03
Absolute Neuts (auto) 7.8 10^3/uL (1.4-6.5) H 12/08/23 18:30
Sodium 139 mmol/L (135-145) 12/09/23 06:03
Potassium 4.2 mmol/L (3.5-5.1) 12/09/23 06:03
Chloride 106 mmol/L (98-107) 12/09/23 06:03
Carbon Dioxide 24 mmol/L (22-30) 12/09/23 06:03
BUN 26 mg/dl (9-20) H 12/09/23 06:03
Creatinine 1.2 mg/dL (0.7-1.3) 12/09/23 06:03
Calcium 9.0 mg/dl (8.4-10.2) 12/09/23 06:03
Total Bilirubin 0.6 mg/dl (0.2-1.3) 12/08/23 19:36
AST 22 U/L (17-59) 12/08/23 19:36
ALT 28 U/L (0-50) 12/08/23 19:36
Alkaline Phosphatase 86 U/L (38-126) 12/08/23 19:36
Diagnostic Image Results:
11/30/23 CT without A/p- No CT evidence for nephroureterolithiasis or hydronephrosis.
12/01/23 US abdomen
No acute hepatobiliary abnormalities.
Mild hepatic steatosis.
A preliminary interpretation was provided by [facility] teleradiology service. The above report agrees with the initial interpretation.
12/05/23 CT Abd/pel W Iv And Oral Contr
Normal.
Prior GI Procedures:
EGD: none
Colonoscopy: Last colonoscopy 11/2023 [facility]y with diverticulosis in sigmoid and descending colon 3 mm polyp IC valve and 3 mm polyp in sigmoid bx TA polyps
Assessment / Plan
-
Pt is a 63yo with hx asthma, GERD, HTN, anxiety, bipolar, tremors, diverticulitis, tourette's with onset of abdominal pain. He has had several ER visits for abdominal pain, back pain and bloating. In reviewing with patient he has had ongoing for a
few months with increase symptoms over last week. He went for routine colonoscopy with sutab prep on 11/28 with increased symptoms post procedure. Work up so far neg with-- US abdomen mild hepatic steatosis, and CT without contrast unrevealing 11/29.
On returns to 12/04 Ct was repeated with IV and oral contrast noted normal. thoracic film 12/06 no acute fx or lesion, DDD. present for further evaluation.
-nausea/dry heaving/bloating
-abdominal pain
-back pain
-wt loss
-colon polyps with recent colonoscopy 11/28
-marijuana use
-fatty liver
-hx colon polyps
-GERD
-HTN
-asthma
- tremors
-pleursy
-diverticulitis
tourette's
-BPH
-erectile dysfunction
-TA polyps
- fatty liver
PLAN:etiology of symptoms related to Peptic/duodenal ulcers, gastritis with worsening symptoms after sutab, h pylori, SIBO, SB process vs other
less likely biliary with neg imaging and stable LFT's
for repeat US abdomen per medical team
plan from GI is EGD on Monday
cont PPI
OP SIBO testing
if persistent symptoms and etiology unclear consider MRE
discussed Marijuana abstinence to rule out cannabis related symptoms
NSAID avoidance
reviewed plan with
-
-
Thank you for consultation and allowing me to participate in the patient's care. Please call the manager radiation GI physician during the after hours with any questions or concerns.
--- NOTE | 2023-12-09 12:35 | W.PN.HOSP.TC ---
Addendum entered and electronically signed by Marko Jones MD 12/09/23 13:50:
I saw and evaluated the patient. I reviewed the resident�s note and agree with findings and plan as documented in the resident�s note.
Original Note:
Documented by User: Bran Peoples MD, Resident 12/09/23 13:13
Today's Communication/Plan
-
Continue IVF resuscitation. Consideration of repeat ultrasound of the abdomen. EGD scheduled for Monday. Continue PPI. Outpatient SIBO testing. NSAID avoidance.
Assessment / Plan
Assessment / Plan
- Syncope secondary to hypotension: Monitoring - Unresolved
Poor PO intake, and on multiple vasoactive medications - but no significant volume losses GI or
Continue to monitor on telemetry for any arrhythmia
IVFs to alleviate hypovolemia
PT/OT evaluation
Continue to monitor
- Loss of appetite secondary to bloating/nausea: Monitoring - Unresolved
Persistent symptoms for many months
CT A/P on 11/29 and 12/04 were unremarkable.
Abdominal ultrasound on 11/29 was also unremarkable
No diarrhea, bloody stools
Continue to give IVFs
GI consult ordered -gastroenterology was under the impression that the etiology of symptoms are related to peptic/duodenal ulcers, gastritis with worsening symptoms after possible infection. They were considering repeat ultrasound of the abdomen.
EGD is scheduled for Monday. Continue PPI. Outpatient SIBO testing. If persistent symptoms continue and etiology remains unclear they wanted to consider possible MRI E they also discussed marijuana abstinence to rule out cannabis related
symptoms. They recommended NSAID avoidance.
Dietary consult ordered
- Acute kidney injury secondary to hypovolemia: Improving
Possible acute tubular necrosis due to low BP
Serum creatinine at 1.7 on admission compared to a baseline of 0.8 -BUN is 26 and creatinine is 1.2 on 12/08
Continue IVF support
Hold lisinopril and other blood pressure agents until patient is approaching normotensive
Most recent imaging does not show any evidence of stone/obstruction
- Benign hypertension: Stable
All BP agents will be held until patient is normotensive and approaching hypertension
DVT prophylaxis: Subcutaneous heparin
CODE STATUS: Full
Anticipated Discharge: 24 - 48 hours
Subjective/Interval History
-
Date of Service: December 09, 2023
Met with patient at the bedside. He is polite yet anxious in discussion. He states that he did not sleep well last night due to abdominal pain. He continues to have abdominal pain that upsets him and has little to no appetite. He shared that he
is lost over 10 pounds over a week time. His favorite food is no longer enough to entice him to eat. He complains of abdominal pain and states that he took his mother's morphine for pain control before coming to the hospital. He hopes
for additional pain medications to be added for pain control.
Objective Data
-
Labs:
Laboratory Results
12/09/23
06:03
WBC 8.9
Hgb 12.5 L
Hct 34.9 L
Plt Count 234
Sodium 139
Potassium 4.2
Chloride 106
Carbon Dioxide 24
BUN 26 H
Creatinine 1.2
Glucose 79
Calcium 9.0
Vital Signs:
Vital Signs
Temp Pulse Resp BP Pulse Ox
98.3 F 74 16 116/76 96
12/09/23 11:00 12/09/23 11:00 12/09/23 11:00 12/09/23 11:00 12/09/23 11:00
I&O
12/08/23 12/09/23 12/10/23
06:59 06:59 06:59
Intake Total 480 / 480
Balance 480 / 480
Review of Systems
-
History Source: Patient
Constitutional: Reports No Appetite and Sleep Disturbance
EENT: Reports No Symptoms Reported
Respiratory: Reports No Symptoms
Cardiac: Reports No Symptoms
Abdomen/GI: Reports Abdominal Pain, Nausea and Bloated
Breast: Reports No Symptoms
Genitourinary: Reports No Symptoms
Musculoskeletal: Reports No Symptoms
Skin: Reports No Symptoms
Neuro: Reports No Symptoms
Endocrine: Reports No Symptoms
Hematologic / Lymphatic: Reports No Symptoms
Allergy / Immunology: Reports No Symptoms
Psych: Reports Anxious
Physical Exam
-
General: Well Developed, Well Nourished, Pain and Other (Overweight)
Respiratory: Clear to Auscultation
Cardiac: Regular Rhythm and S1/S2
Breast: Deferred by me
GI: Tender
Rectal: Deferred by Provider
Genito-urinary: Deferred by me
Skin: Warm
Neuro: Nonfocal/Grossly Intact
Psych: Anxious

Documented by User: Marko Jones MD 12/09/23 13:49
Assessment / Plan
Assessment / Plan
- Syncope secondary to hypotension. None further
Poor PO intake, and on multiple vasoactive medications - but no significant volume losses GI or
Continue to monitor on telemetry for any arrhythmia
IVFs to alleviate hypovolemia
PT/OT evaluation
Continue to monitor
- Loss of appetite secondary to bloating/nausea: Monitoring - Unresolved
Persistent symptoms for many months
CT A/P on 11/29 and 12/04 were unremarkable.
Abdominal ultrasound on 11/29 was also unremarkable
No diarrhea, bloody stools
GI consult ordered -gastroenterology was under the impression that the etiology of symptoms are related to peptic/duodenal ulcers, gastritis with worsening symptoms after possible infection. They were considering repeat ultrasound of the abdomen.
EGD is scheduled for Monday. Continue PPI. Outpatient SIBO testing. If persistent symptoms continue and etiology remains unclear they wanted to consider possible MRI E they also discussed marijuana abstinence to rule out cannabis related
symptoms. They recommended NSAID avoidance.
Dietary consult ordered
- Acute kidney injury secondary to hypovolemia: Improving
Possible acute tubular necrosis due to low BP
Serum creatinine at 1.7 on admission compared to a baseline of 0.8 -BUN is 26 and creatinine is 1.2 on 12/08
Continue IVF support
Hold lisinopril and other blood pressure agents until patient is approaching normotensive
Most recent imaging does not show any evidence of stone/obstruction
- Benign hypertension: Stable
All BP agents will be held until patient is normotensive and approaching hypertension
- Mid back pain - non traumatic - for few days now. No radiculapathy. Thoracic x-rays done 2 days ago shows multi level overall mild changes of DJD. symptomatic tx for now.
DVT prophylaxis: Subcutaneous heparin
CODE STATUS: Full
[2023-12-09] MEDS: ROXICODONE 5 MG PO (20:25)
[2023-12-10] VITALS (8 sets, daily range): BP systolic 134–176; BP diastolic 88–114; PULSE 76–117; O2SAT 96; BMI 28.0
[2023-12-10] MEDS: MYLICON 80 MG PO (00:19)
[2023-12-10] MEDS: ROXICODONE 5 MG PO ×2 (00:39→20:35)
--- NOTE | 2023-12-10 03:13 | PTCARENOTE ---
Pt BP 176/113 HR 89, when rechecked BP 174/110 HR 88. Pt with no symptoms. [employer] Esdras Delacruz made aware. NSS decreased to 60mls/hr. No further orders.
[2023-12-10] MEDS: NSS 1000 IV ×2 (05:44→22:40)
[2023-12-10 08:02] LABS: Hematocrit 37.4 % (39.0-52.0); Hemoglobin 13.2 g/dL (13.0-18.0); Mean Corp Hgb Conc. 35.3 g/dL (33.0-37.0); Mean Corpuscular Hgb 28.8 pg (27.0-31.0); Mean Corpuscular Volume 81.7 fL (80.0-94.0); Mean Platelet Volume 9.5 fL (7.4-10.4); Platelet Count 282 10^3/uL (130-400); Red Blood Cell Count 4.58 10^6/uL (4.70-6.10); Red Cell Dist. Width 13.1 % (11.5-14.5); White Blood Cell Count 9.2 10^3/uL (4.8-10.8)
--- NOTE | 2023-12-10 08:04 | W.PN.GI.CBS2 ---
Today's Communication / Plan
-
EGD in am
Assessment / Plan
-
Pt is a 63yo with hx asthma, GERD, HTN, anxiety, bipolar, tremors, diverticulitis, tourette's with onset of abdominal pain. He has had several ER visits for abdominal pain, back pain and bloating. In reviewing with patient he has had ongoing for a
few months with increase symptoms over last week. He went for routine colonoscopy with sutab prep on 11/28 with increased symptoms post procedure. Work up so far neg with-- US abdomen mild hepatic steatosis, and CT without contrast unrevealing 11/29.
On returns to 12/04 Ct was repeated with IV and oral contrast noted normal. thoracic film 12/06 no acute fx or lesion, DDD. present for further evaluation.
-nausea/dry heaving/bloating
-abdominal pain
-back pain
-wt loss
-colon polyps with recent colonoscopy 11/28
-marijuana use
-fatty liver
-hx colon polyps
-GERD
-HTN
-asthma
- tremors
-pleursy
-diverticulitis
tourette's
-BPH
-erectile dysfunction
-TA polyps
- fatty liver
PLAN:etiology of symptoms related to Peptic/duodenal ulcers, gastritis with worsening symptoms after sutab, h pylori, SIBO, SB process vs other
EGD in am
OP SIBO testing
if persistent symptoms and etiology unclear consider MRE
Marijuana abstinence to rule out cannabis related symptoms
NSAID avoidance
Subjective
Subjective
Date of Service: December 10, 2023
Pt w/o pain, chronic early satiety
tolerates clears
Objective
Data Reviewed
Laboratory Data:
Laboratory Results
Total Bilirubin 0.6 mg/dl (0.2-1.3) 12/08/23 19:36
AST 22 U/L (17-59) 12/08/23 19:36
ALT 28 U/L (0-50) 12/08/23 19:36
Alkaline Phosphatase 86 U/L (38-126) 12/08/23 19:36
Vital Signs and I&O:
Vital Signs
Temp Pulse Resp BP Pulse Ox
97.6 F 94 18 162/107 95
12/10/23 07:53 12/10/23 07:53 12/10/23 07:53 12/10/23 07:53 12/10/23 07:53
I&O
12/09/23 12/10/23 12/11/23
06:59 06:59 06:59
Intake Total 480 / 480 2460 / 2460
Balance 480 / 480 2460 / 2460
Physical Exam
Physical Exam
GI: Soft, Non Distended and Non Tender
[2023-12-10 08:37] LABS: ALT (SGPT) 27 U/L (0-50); AST (SGOT) 25 U/L (17-59); Albumin 4.2 g/dl (3.5-5.0); Alkaline Phosphatase 98 U/L (38-126); Blood Urea Nitrogen 8 mg/dl (9-20); Calcium 9.5 mg/dl (8.4-10.2); Carbon Dioxide 25 mmol/L (22-30); Chloride 101 mmol/L (98-107); Estimated Creatinine Clearance 90 ml/min; Glucose 96 mg/dl (70-99); Potassium 3.8 mmol/L (3.5-5.1); Sodium 136 mmol/L (135-145); Total Bilirubin 0.8 mg/dl (0.2-1.3); Total Protein 6.8 g/dl (6.3-8.2); eGFR > 60.00
[2023-12-10] MEDS: PROTONIX IV 40 MG IV (09:09)
[2023-12-10] MEDS: NSS (PRESERVATIVE FREE) 10 ML IV (09:09)
[2023-12-10] MEDS: WELLBUTRIN XL (24 hour extended release) 300 MG PO (09:09)
[2023-12-10] MEDS: PROZAC 60 MG PO (09:09)
[2023-12-10] MEDS: HEPARIN 5000 UNITS SC ×2 (09:09→20:31)
[2023-12-10] MEDS: ZESTRIL 5 MG PO (11:16)
[2023-12-10] MEDS: INDERAL LA 80 MG PO (11:16)
--- NOTE | 2023-12-10 11:19 | W.PN.HOSP.TC ---
Addendum entered and electronically signed by Marko Jnoes MD 12/10/23 11:43:
I saw and evaluated the patient. I reviewed the resident�s note and agree with findings and plan as documented in the resident�s note.
Still with upper GI symptoms. Await EGD. CW PPI
Blood pressure elevated-resume his home regimen and follow. Creatinine has normalized.
Original Note:
Today's Communication/Plan
-
We will continue to give IVF resuscitation. Patient has been scheduled for an EGD in the morning tomorrow. Patient has been advised to follow-up outpatient for SIBO testing. Gastroenterology recommends that if persistent symptoms continue and
etiology remains unclear then we may consider MRE.
Assessment / Plan
Assessment / Plan
- Syncope secondary to hypotension: Monitoring - Resolved
Poor PO intake, and on multiple vasoactive medications - but no significant volume losses GI or
Continue to monitor on telemetry for any arrhythmia
IVFs to alleviate hypovolemia
PT/OT evaluation
Continue to monitor
- Loss of appetite secondary to bloating/nausea: Monitoring - Unresolved
Persistent symptoms for many months
CT A/P on 11/29 and 12/04 were unremarkable.
Abdominal ultrasound on 11/29 was also unremarkable
No diarrhea, bloody stools
GI consult ordered - gastroenterology was under the impression that the etiology of symptoms are related to peptic/duodenal ulcers, gastritis with worsening symptoms after possible infection. They were considering repeat ultrasound of the abdomen.
EGD is scheduled for Monday. Continue PPI. Outpatient SIBO testing. If persistent symptoms continue and etiology remains unclear they wanted to consider possible MRE they also discussed marijuana abstinence to rule out cannabis related symptoms.
They recommended NSAID avoidance.
Dietary consult ordered
- Acute kidney injury secondary to hypovolemia: Improving
Possible acute tubular necrosis due to low BP
Serum creatinine at 1.7 on admission compared to a baseline of 0.8 -BUN is 8 and creatinine is 0.8 on 12/09
Continue IVF support
Most recent imaging does not show any evidence of stone/obstruction
- Benign hypertension: Stable
BP agents resumed
- Mid back pain - non traumatic:
No radiculapathy. Thoracic x-rays done on 12/06 shows multi level overall mild changes of DJD. symptomatic tx given
DVT prophylaxis: Subcutaneous heparin
CODE STATUS: Full
Anticipated Discharge: 24 - 48 hours
Subjective/Interval History
-
Date of Service: December 10, 2023
Met with patient at the bedside. Patient states that he is doing marginally better today and does not have notable abdominal pain. He continues to have early satiety and is unable to eat much. He is tolerating his clear diet but wishes he could
eat more. He also states that he feels bloated. He continues to feel anxious and states that there are life stressors at home and in his business. He was seen participating with PT/OT and was happily walking around with the physical therapist.
Objective Data
-
Labs:
Laboratory Results
12/10/23
07:21
WBC 9.2
Hgb 13.2
Hct 37.4 L
Plt Count 282 D
Sodium 136
Potassium 3.8
Chloride 101
Carbon Dioxide 25
BUN 8 L
Creatinine 0.8
Glucose 96
Calcium 9.5
Total Bilirubin 0.8
AST 25
ALT 27
Alkaline Phosphatase 98
Vital Signs:
Vital Signs
Temp Pulse Resp BP Pulse Ox
97.6 F 94 18 162/107 95
12/10/23 07:53 12/10/23 07:53 12/10/23 07:53 12/10/23 07:53 12/10/23 07:53
I&O
12/09/23 12/10/23 12/11/23
06:59 06:59 06:59
Intake Total 480 / 480 2460 / 2460
Balance 480 / 480 2460 / 2460
Review of Systems
-
History Source: Patient
Constitutional: Reports No Symptoms
EENT: Reports No Symptoms Reported
Respiratory: Reports No Symptoms
Cardiac: Reports No Symptoms
Abdomen/GI: Reports Bloated and Other (Loss of appetite)
Breast: Reports No Symptoms
Genitourinary: Reports No Symptoms
Musculoskeletal: Reports No Symptoms
Skin: Reports No Symptoms
Neuro: Reports No Symptoms
Endocrine: Reports No Symptoms
Hematologic / Lymphatic: Reports No Symptoms
Allergy / Immunology: Reports No Symptoms
Physical Exam
-
General: Well Developed, Well Nourished and No Apparent Distress
HEENT: Normocephalic, Atraumatic and Moist Mucous Membranes
Respiratory: Clear to Auscultation
Cardiac: Regular Rhythm
Breast: Deferred by me
GI: Soft, Normal Bowel Sounds and Other (Tense)
Rectal: Deferred by Provider
Genito-urinary: Deferred by me
Musculoskeletal: No Clubbing, No Cyanosis and No Edema
Skin: Warm and Dry
Neuro: Nonfocal/Grossly Intact
Psych: Anxious
--- NOTE | 2023-12-10 15:46 | CM ---
Patient seen bedside.
IA completed.
Patient lives with spouse in an [place], 1 flight to enter.
Patient works and drives.
Independent prior to admission without assistive devices.
No hx VN, denies home care needs.
PCP: Dr Malin
Pharmacy: [facility]
Plan: home no needs anticipated.
[2023-12-11] VITALS (13 sets, daily range): BP systolic 121–176; BP diastolic 90–113; PULSE 70–84; BMI 27.7
[2023-12-11] MEDS: ROXICODONE 5 MG PO ×2 (00:58→05:41)
[2023-12-11] MEDS: ZESTRIL 5 MG PO (05:52)
--- NOTE | 2023-12-11 06:43 | PTCARENOTE ---
~0430: Pt's BP on the automatic cuff was 174/111, HR 71. Manual BP was 170/100, 5/10 pain in mid back but no other symptoms. House CHRISTY Dewitt notified, will recheck BP in one hour.
~ 0530: Pt's BP manually is 175/100, automatic is 174/108, HR 70. Joesph Dewitt notified, will give PO Lisinopril 5mg daily now.
[2023-12-11 08:20] LABS: Hematocrit 39.4 % (39.0-52.0); Mean Corp Hgb Conc. 35.5 g/dL (33.0-37.0); Mean Corpuscular Hgb 29.2 pg (27.0-31.0); Mean Corpuscular Volume 82.3 fL (80.0-94.0); Mean Platelet Volume 9.6 fL (7.4-10.4); Platelet Count 294 10^3/uL (130-400); Red Blood Cell Count 4.79 10^6/uL (4.70-6.10); White Blood Cell Count 9.1 10^3/uL (4.8-10.8)
[2023-12-11 09:02] LABS: ALT (SGPT) 26 U/L (0-50); AST (SGOT) 26 U/L (17-59); Albumin 4.1 g/dl (3.5-5.0); Alkaline Phosphatase 102 U/L (38-126); Blood Urea Nitrogen 8 mg/dl (9-20); Calcium 9.9 mg/dl (8.4-10.2); Carbon Dioxide 26 mmol/L (22-30); Chloride 99 mmol/L (98-107); Estimated Creatinine Clearance 90 ml/min; Glucose 107 mg/dl (70-99); Potassium 3.9 mmol/L (3.5-5.1); Sodium 137 mmol/L (135-145); Total Bilirubin 0.9 mg/dl (0.2-1.3); Total Protein 7.1 g/dl (6.3-8.2); eGFR > 60.00
[2023-12-11] MEDS: NSS (PRESERVATIVE FREE) 10 ML IV (09:23)
[2023-12-11] MEDS: PROTONIX IV 40 MG IV (09:23)
[2023-12-11] MEDS: HEPARIN 5000 UNITS SC (09:23)
[2023-12-11] MEDS: INDERAL LA 80 MG PO (09:23)
--- NOTE | 2023-12-11 10:40 | W.PN.UPDATE ---
Update Note
Progress Note Update
EGD: gastritis moderate, benign gastric polyps, biopsied. plaques in esophagus, did not look like tawana, biopsied, duodenum biopsied
plan:
f/u biopsies
diet as tolerated
f/u with Dr. Figueroa who he recently saw, message sent to schedule
no further inpatient w/u
will sign off
[2023-12-11] MEDS: PROZAC 60 MG PO (11:57)
[2023-12-11] MEDS: WELLBUTRIN XL (24 hour extended release) 300 MG PO (11:58)
--- NOTE | 2023-12-11 14:18 | W.PN.HOSP.TC ---
Addendum entered and electronically signed by Alexa Cedeno MD 12/12/23 06:58:
Patient meets criteria for mild protein calorie malnutrition of acute illness
Addendum entered and electronically signed by Alexa Cedeno MD 12/11/23 19:16:
I saw and evaluated the patient independently. I reviewed the resident�s note and agree with findings and plan as documented by Dr. Peoples.
GENERAL: well developed, well nourished, male in no apparent distress
HEENT: NC/AT
HEART: regular rate and rhythm, +S1, +S2
LUNGS : clear to auscultation bilaterally
ABDOM: soft, nontender, nondistended, + bowel sounds
EXT: no cyanosis, clubbing, or edema
NEUROLOGIC: grossly intact
Syncope secondary to hypotension-- s/p IVF-- Resolved--PT/OT--pt ambulating on his own--Poor PO intake, and on multiple vasoactive medications - but no significant volume losses GI or
Loss of appetite secondary to bloating/nausea--Persistent symptoms for many months--CT A/P on 11/29 and 12/04 were unremarkable--Abdominal ultrasound on 11/29 was also unremarkable--apprec GI--had outpt colonoscopy and inpt EGD with biopsies--possible
etiology of symptoms could be related to peptic/duodenal ulcers, gastritis with worsening symptoms or possible infection--Continue PPI. Outpatient SIBO testing--NSAID avoidance
Acute kidney injury secondary to hypovolemia: Resolved--Possible acute tubular necrosis due to low BP--Serum creatinine at 1.7 on admission compared to a baseline of 0.8 -BUN is 8 and creatinine is 0.8 on 12/09--Continue IVF support--Most recent
imaging does not show any evidence of stone/obstruction
Benign hypertension: Stable--BP agents resumed
Mid back pain - non traumatic--No radiculapathy. Thoracic x-rays done on 12/06 shows multi level overall mild changes of DJD. symptomatic tx given
DVT prophylaxis: Subcutaneous heparin
CODE STATUS: Full
Original Note:
Today's Communication/Plan
-
Patient had his endoscopy conducted today which showed abnormal mucosa in the esophagus which was biopsied. It also showed gastritis with multiple gastric polyps which were biopsied. Normal examined duodenum which was also biopsied. From a GI
standpoint they believe that the patient is appropriate to be managed in an outpatient setting. No further inpatient workup needed. We will move forward with discharge planning.
Assessment / Plan
Assessment / Plan
- Syncope secondary to hypotension: Monitoring - Resolved
Poor PO intake, and on multiple vasoactive medications - but no significant volume losses GI or
Continue to monitor on telemetry for any arrhythmia
IVFs to alleviate hypovolemia
PT/OT evaluation
Continue to monitor
- Loss of appetite secondary to bloating/nausea: Monitoring - Stable
Persistent symptoms for many months
CT A/P on 11/29 and 12/04 were unremarkable.
Abdominal ultrasound on 11/29 was also unremarkable
No diarrhea, bloody stools
GI consult ordered - gastroenterology was under the impression that the etiology of symptoms are related to peptic/duodenal ulcers, gastritis with worsening symptoms after possible infection. They were considering repeat ultrasound of the abdomen.
Continue PPI. Outpatient SIBO testing. If persistent symptoms continue and etiology remains unclear they wanted to consider possible MRE they also discussed marijuana abstinence to rule out cannabis related symptoms. They recommended NSAID
avoidance.
Endoscopy was conducted on 12/10 and showed abnormal mucosa in the esophagus which were biopsied. Gastritis was also detected which was biopsied. Multiple gastric polyps were also detected and those were biopsied as well. Currently awaiting
pathology results. GI recommends follow-up as an outpatient with Dr. Figueroa.
Dietary consult ordered
- Acute kidney injury secondary to hypovolemia: Resolved
Possible acute tubular necrosis due to low BP
Serum creatinine at 1.7 on admission compared to a baseline of 0.8 -BUN is 8 and creatinine is 0.8 on 12/09
Continue IVF support
Most recent imaging does not show any evidence of stone/obstruction
- Benign hypertension: Stable
BP agents resumed
- Mid back pain - non traumatic:
No radiculapathy. Thoracic x-rays done on 12/06 shows multi level overall mild changes of DJD. symptomatic tx given
DVT prophylaxis: Subcutaneous heparin
CODE STATUS: Full
Anticipated Discharge: Today
Subjective/Interval History
-
Date of Service: December 11, 2023
Met with patient at the bedside. He states that he feels that he is doing better than he has for the past few days. He has been trying to walk around the hospital unit to get exercise and is often seen smiling and walking with his IV fluid stand.
He continues to perseverate over stresses that are happening in his personal life. His abdominal pain has improved and believes that he is ready to go home after his EGD is conducted. He still complains of feeling bloated and having early satiety
but thinks that eating in smaller portions may help alleviate this issue. Patient states that he only slept 2 hours last night and found that the hospital beds were immensely uncomfortable.
Objective Data
-
Labs:
Laboratory Results
12/11/23 12/11/23
07:19 07:20
WBC 9.1
Hgb 14.0
Hct 39.4
Plt Count 294
Sodium 137
Potassium 3.9
Chloride 99
Carbon Dioxide 26
BUN 8 L
Creatinine 0.8
Glucose 107 H
Calcium 9.9
Total Bilirubin 0.9
AST 26
ALT 26
Alkaline Phosphatase 102
Vital Signs:
Vital Signs
Temp Pulse Resp BP Pulse Ox
97.9 F 68 13 159/101 97
12/11/23 11:03 12/11/23 11:03 12/11/23 11:03 12/11/23 11:03 12/11/23 11:03
I&O
12/10/23 12/11/23 12/12/23
06:59 06:59 06:59
Intake Total 2460 / 2460 1080 / 1080
Balance 2459 / 1080
Review of Systems
-
History Source: Patient
Constitutional: Reports No Appetite (Reduced appetite and early satiety) and Sleep Disturbance
EENT: Reports No Symptoms Reported
Respiratory: Reports No Symptoms
Cardiac: Reports No Symptoms
Abdomen/GI: Reports Bloated and Other (Early satiety)
Breast: Reports No Symptoms
Genitourinary: Reports No Symptoms
Musculoskeletal: Reports Other (Back pain)
Skin: Reports No Symptoms
Neuro: Reports No Symptoms
Endocrine: Reports No Symptoms
Hematologic / Lymphatic: Reports No Symptoms
Allergy / Immunology: Reports No Symptoms
Physical Exam
-
General: Well Developed, Well Nourished and No Apparent Distress
HEENT: Normocephalic, Atraumatic and Moist Mucous Membranes
Respiratory: Clear to Auscultation
Cardiac: Regular Rhythm and S1/S2
Breast: Deferred by me
GI: Soft and Normal Bowel Sounds
Rectal: Deferred by Provider
Genito-urinary: Deferred by me
Musculoskeletal: No Clubbing, No Cyanosis and No Edema
Skin: Warm and Dry
Neuro: Nonfocal/Grossly Intact
Psych: Calm
--- NOTE | 2023-12-11 14:35 | W.DCSUMMARY ---
Addendum entered and electronically signed by Alexa Cedeno MD 12/11/23 19:19:
Read, reviewed, and agree. See same day progress note for additional details. Time spent coordinating care, DC planning, review of DC plan of care with resident, transition of care, review of records in EMR, med rec, consults, notes, d/w
consultants, nursing, family, and CM = < 30 mins.
Original Note:
Discharge Summary
Discharge Data
Date of Admission: 12/09/23
Date of Discharge: 12/11/23
-
Pending Results: Yes
Additional Pending Results:
Follow-up with endoscopy biopsy results outpatient
Hospital Course
Patient is a 63-year-old male with a past medical history significant for anxiety/depression and hypertension who presented to the ED complaining of bloating, nausea and poor appetite for several months. He noted that his symptoms had been much
worse over the past 7 to 10 days prior to his presentation at the emergency department. On the day of his presentation he had an episode of syncope at home while walking and fell onto his face. He stated that he felt mildly woozy prior to the
fall. He denied any headache. Patient noted a sense of nausea, poor appetite and bloating for many months. He felt that he was 'getting old' and perhaps becoming intolerant to certain foods but he was unable to identify any specific culprits.
Patient had a routine screening colonoscopy done on 11/[address] Martinez was not related to his symptoms. Following the colonoscopy, the patient stated that his bloating and nausea seem to become much more severe. Patient was admitted to
[facility] for concerns of syncope secondary to hypotension.
Upon admission the patient was given IVFs to alleviate hypovolemia which was the suspected cause of the hypotension. Serum creatinine was 1.7 on admission compared to his baseline of 0.8 which further indicated RAMOS possibly prerenal. Patient had
lower back pain which prevented the patient from having a sound sleep. This back pain was treated with oral pain medication. After sufficient IVF support was given the patient began to show improvement and no longer felt woozy or faint.
Creatinine level improved to 0.8 and returned to normal limits. As the patient became euvolemic the patient became hypertensive. Patient's lisinopril was increased to 10 mg from 5 mg due to persistent hypertension once he was euvolemic. He
continued to have early satiety and bloating but it was marginally improved compared to his admission. GI consult evaluated the patient and they were under the impression that the etiology of the symptoms were related to peptic/duodenal ulcers,
gastritis with worsening symptoms after possible infection. An EGD was scheduled and outpatient SIBO testing was planned. The endoscopy showed abnormal mucosa in the esophagus which were biopsied. Gastritis was also detected which was biopsied.
Multiple gastric polyps were also detected and those were biopsied as well. Patient was advised to follow-up with GI in the outpatient setting to determine the results of those biopsies. Recommended follow-up as an outpatient with Dr. Figueroa.
GI believe that the patient is appropriate for follow-up in the outpatient setting. Patient believes that he is ready to go home and follow-up with gastroenterology outpatient and with his primary care provider.
The patient has reached maximal benefit from this hospital stay and is appropriate for discharge at the present time. The patient has been advised to follow-up with his primary care provider and armor reconnaissance specialist. The patient should follow-up
with his endoscopy biopsy results in the outpatient setting. Patient has been advised to continue to use pantoprazole and sucralfate. Patient has been advised to continue to take his blood pressure medications and note the change in his
lisinopril. Patient has been advised to take blood pressure readings at home prior to meeting with his primary care provider so that the data may be beneficial for medication adjustment if needed. The patient is appropriate for discharge at the
present time and there are no barriers for discharge.
Discharge Plan
-
Patient Disposition: Home (Routine Discharge)
Discharge Diagnosis/Procedures: Syncope secondary to hypotension, loss of appetite secondary to bloating/nausea, acute kidney injury secondary to hypovolemia, benign hypertension, mid back pain
Condition: Good
Diet: As tolerated
Activity: No restrictions
Driving Restrictions: No driving for 24 hours
Bathing Restrictions: None
Referrals:
Murali Malin Jr., DO [Family Provider] - in one week
Tosha Figueroa MD [Active] - (as instructed)
Prescriptions:
New
lisinopril 10 mg tablet
10 mg PO DAILY Qty: 30 0RF
pantoprazole [Protonix] 40 mg tablet,delayed release (DR/EC)
40 mg PO BID Qty: 60 0RF
sucralfate [Carafate] 1 gram tablet
1 g PO TID Qty: 90 0RF
Continued
fluoxetine 20 MG capsule
60 mg PO DAILY
'Statin'
1 tab PO DAILY
Patient Comments:
pt does not know name or dose
propranolol [Inderal LA] 80 mg Capsule,Extended Release 24 Hr
80 mg PO DAILY
zaleplon 5 mg Capsule
5 mg PO HS
albuterol sulfate 90 mcg/actuation Hfa Aerosol Inhaler
1 - 2 inh INHALATION PRN PRN (Reason: asthma)
bupropion HCl [Wellbutrin XL] 300 mg Tablet Extended Release 24 Hr
300 mg PO DAILY
Symbicort
2 puff inhalation DAILY
Patient Comments:
pt does not know dose
Discontinued
lisinopril 5 mg Tablet
5 mg PO DAILY
Discharge Orders:
Discharge Patient (As Directed); Ordered 12/11/23
Ordered By: Bran Peoples
Discharge Date and Time
Discharge Date/Time: 12/11/23 16:33
Print Language: ROMANIAN
--- NOTE | 2023-12-11 15:16 | CM ---
Patient seen at bedside. Patient states he has no needs and family will provide transportation home. CM will continue to follow for dicharge planning needs.
--- NOTE | 2023-12-11 17:18 | PN.CDI ---
CDI
- -
CDI:
Physician Documentation Request
Admit Date: 12/09/23 00:40
Dear Doctor Richelle,
12/10 RD note states ' initial consult due to weight loss/decreased appetite.....Pt meets ASPEN criteria for mild protein calorie malnutrition of acute illness with sudden weight loss just prior to hospital admission and sudden poor intake just prior
to admission < 75% x >5days'
Based on the above information and your assessment, which of the following most accurately represents the patient's nutritional status?
Severe malnutrition
No nutritional deficiency
Other (please specify)
[place] Criteria ([facility] Hospitalist 2017)
2 or more criteria must be present for either
non severe or severe malnutrition
Note that the criteria differs related to the
presence of an acute or chronic illness
Acute Illness Chronic Illness
Energy Intake Non Severe: <75% for >7 days Non Severe: <75% for >1 month
Severe: <50% for >5 days Severe: <75% for >1 month
Weight Loss Non Severe: 1-2% over 1 week Non Severe: 5% over 1 month
5% over 1 month 7.5% over 3 months
7.5% over 3 months 10% over 6 months
1 year N/A 20% over 1 year
Severe: >2% over 1 week Severe: >5% over 1 month
>5% over 1 month >7.5% over 3 months
>7.5% over 3 months >10% over 6 months
1 year N/A >20% over 1 year
Body Fat Non Severe: Mild Decrease Non Severe: Mild Loss
Severe: Moderate Decrease Severe: Severe Loss
Muscle Mass Non Severe: Mild Decrease Non Severe: Mild Loss
Severe: Moderate Decrease Severe: Severe Loss
Fluid Accumulation Non Severe: Mild Accumulation Non Severe: Mild Accumulation
Severe: Moderate to severe Severe: Moderate to severe
accumulation accumulation
Reduced [employer] Shop [employer] Strength Non Severe: N/A Non Severe: N/A
Severe: Measurably reduced Severe: Measurably reduced
Additional criteria that can be used to Determine if Mild or Moderate Malnutrition ([employer] Manual 2018)
Mild Moderate Severe
Albumin gm/dl <3.0 gm/dl <2.5 gm/dl <2.0 gm/dl
Pre Albumin mg/dl <15 gm/dl <10 mg/dl <5.0 mg/dl
BMI <18.5 <17 <16
Use of terms such as suspected, likely, concern for, or probable (associated with a specific diagnosis that is being evaluated, monitored, or treated as if it exists) are acceptable and can be coded in the inpatient setting, when documented at the
time of discharge.
Thank you,
Shanon Howell RN, BSN
CDI Specialist
tiger text
Please use your independent medical judgment in providing your response.
== END 2023-12-11 16:33 | disposition home or self-care (01) | DRG 314 ==
LOC: 4 WEST ACU 00:40
PROVIDERS: Physician Assistant; ADMITTING PHYSICIAN Hospitalist; ATTENDING PHYSICIAN Internal Medicine; CONSULT PHYSICIAN Internal Medicine; EMERGENCY PHYSICIAN Emergency Medicine; FAMILY PHYSICIAN Family Medicine
PROC: 0DB68ZX Excision of Stomach, Via Natural or Artificial Opening Endoscopic, Diagnostic (ICD-10-PCS; 2023-12-11)
DX: I95.89 Other hypotension (principal); N17.0 Acute kidney failure with tubular necrosis; E44.1 Mild protein-calorie malnutrition; E86.1 Hypovolemia; I10 Essential (primary) hypertension; K29.60 Other gastritis without bleeding; K31.7 Polyp of stomach and duodenum
CPT/HCPCS: 88305; 88312; 70450; 76700; 80048; 80053; 84443; 84484; 85025; 85027; 88342; 93005; 96360; 96361; 97161; 97166; 99285

== ENCOUNTER → 2024-01-25 11:14 | Outpatient (REF) | payer OTHER, SELFPAY | LOC: HWRAD 11:14 | PROVIDERS: ATTENDING PHYSICIAN Registered Nurse | DX: M54.50 Low back pain, unspecified (principal) | CPT/HCPCS: 72110 ==

== ENCOUNTER → 2024-02-16 11:20 | Outpatient (REF) | payer OTHER, SELFPAY | LOC: RAD 11:20 | PROVIDERS: ATTENDING PHYSICIAN Internal Medicine Gastroenterology; FAMILY PHYSICIAN Family Medicine | DX: R14.0 Abdominal distension (gaseous) (principal) | CPT/HCPCS: 74018 ==

== ENCOUNTER → 2024-02-25 06:24 | Outpatient (REF) | payer OTHER, SELFPAY | LOC: MRI 3T 06:24 | PROVIDERS: ATTENDING PHYSICIAN Internal Medicine | DX: M54.50 Low back pain, unspecified (principal) | CPT/HCPCS: 72148 ==